=== PATIENT | female | born 1995 | race Caucasian/White ===

== ENCOUNTER 2020-09-30 16:32 | Emergency (ER) | payer OTHER, SELFPAY ==
[2020-09-30 16:43] VITALS: BP 140/59; PULSE 67; RESP 14; TEMP 36.6; O2SAT 99
[2020-09-30] MEDS: KETOROLAC (*BKC) 60 MG/2 ML VIAL IM (16:58)
--- NOTE | 2020-09-30 17:21 | ED.BACK ---
HPI - Back Pain/Injury General Chief Complaint: Back Pain/Injury Stated Complaint: Lower Back Pain Time Seen by Provider: 09/30/20 17:21 Source: patient and RN notes reviewed Mode of arrival: ambulatory Limitations: no limitations History of Present Illness HPI Narrative: 25-year-old female presents concern for right thoracic and lumbar back pain. Reports pain started gradually last night. 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 Reports relieving factors are positions of comfort, not moving. Reports bending, twisting exacerbate the pain. She denies any intervention for her pain other than heating pad which she reports does not improve the pain. She denies any loss of bowel or bladder function, perianal esthesia, dysuria, frequency, urgency, hematuria, abdominal pain, vomiting, weakness in any extremity MD elicited complaint: back pain Related Data Home Medications Medication Instructions Recorded Confirmed mirtazapine 15 mg PO HS 09/30/20 09/30/20 Allergies Allergy/AdvReac Type Severity Reaction Status Date / Time No Known Allergies Allergy Unknown Verified 09/30/20 17:04 Review of Systems Review of Systems: Narrative: CONSTITUTIONAL: Denies malaise, chills, sweats, or fever. CARDIOVASCULAR: Denies chest pain, palpitations, or edema. RESPIRATORY: Denies cough or dyspnea. GASTROINTESTINAL: Denies abdominal pain, vomiting, diarrhea, bloody, or mucous stools. GENITOURINARY: Denies frequency, urgency, dysuria or hematuria. SKIN: Denies bruising, redness MUSCULOSKELETAL: Reports right mid and low back pain. Denies myalgia. NEUROLOGIC: Denies numbness, weakness, or headache. All systems reviewed & are unremarkable except as noted in HPI and below PMFSH Comments At time of signature, agree with nursing past medical, surgical, social and family history. There is no relevant family history pertinent to the presenting complaint Exam Narrative: Exam Narrative: GENERAL: Well-appearing, well-nourished, and in no acute distress. HEAD: Normocephalic, atraumatic. EYES: PERRLA and EOMI. NECK: Supple. No lymphadenopathy. CHEST: Clear to auscultation. No respiratory distress. HEART: Regular rate and rhythm. Distal pulses palpable and equal, cap refill <3 seconds ABDOMEN: Soft, nontender, nondistended, normal active bowel sounds, no palpable or pulsatile masses. No CVA tenderness MUSCULOSKELETAL: Normal range of motion and strength in all extremities; 5/5 strength with hip flexion and extension, dorsiflexion and extension, knee flexion and extension, plantar flexion and extension. Normal sensation in dermatomal distributions with sensitivity to light touch and pain. No midline back tenderness to palpation. No paraspinal tenderness. Transfers from lying to sitting to standing. SKIN: Warm, dry, no rash. No ecchymosis, erythema, open wounds to back. NEURO: No focal deficits. Alert and oriented x3. Reflexes intact. Normal gait. PSYCH: Normal mood and affect Course Course Emergency Course: Patient is aware of diagnosis, understands and agrees to treatment plan. Anticipatory guidance given. Patient agrees to follow-up as directed and is aware of reasons to seek care at the emergency department. Portions of this record may have been created with voice recognition software Vital Signs Vital signs: Vital Signs Temperature 97.8 F 09/30/20 16:43 Pulse Rate 67 09/30/20 16:43 Respiratory Rate 14 09/30/20 16:43 Blood Pressure 140/59 L 09/30/20 16:43 Pulse Oximetry 99 09/30/20 16:43 Temperature 97.8 F 09/30/20 16:43 Pulse Rate 67 09/30/20 16:43 Respiratory Rate 14 09/30/20 16:43 Blood Pressure 140/59 L 09/30/20 16:43 Pulse Oximetry 99 09/30/20 16:43 Reviewed. MDM - Back Pain/Injury MDM Narrative Medical decision making narrative: No risk factors or findings concerning for epidural abscess, diskitis, vertebral osteomyelitis, cord compression, cauda equina, vertebral fracture or bone malignancy, AAA, or pyeloneph
== END 2020-09-30 17:36 | disposition home or self-care (01) ==
PROVIDERS: Emergency Provider Nurse Practitioner; PCP Internal Medicine
DX: M54.6 Pain in thoracic spine (principal)
CPT/HCPCS: 96372; 99213; G0463; J1885

== ENCOUNTER 2020-12-20 08:06 | Emergency (ER) | payer OTHER, SELFPAY ==
--- NOTE | 2020-12-20 08:13 | ED.GENADULT ---
HPI - General Adult General Chief complaint: Upper Respiratory Infection Stated complaint: fever sore throat headache Time Seen by Provider: 12/20/20 08:13 Source: patient Mode of arrival: ambulatory Limitations: no limitations History of Present Illness HPI narrative: 25-year-old female patient presents to the [facility] with complaints of cold symptoms that started yesterday. Patient states that she has had a sore throat and scratchy throat. Patient states she has had some nasal congestion, runny nose and states that she did have a fever of 100 yesterday when she came home from work. Denies any chest pain, shortness of breath. Denies any abdominal pain, nausea, vomiting or diarrhea. Patient states she did try some [id number] TheraFlu last night but denies take anything else for her symptoms. Related Data Home Medications Medication Instructions Recorded Confirmed No Home Medications 12/20/20 12/20/20 Allergies Allergy/AdvReac Type Severity Reaction Status Date / Time No Known Allergies Allergy Unknown Verified 12/20/20 08:30 Review of Systems Review of Systems: Narrative: CONSTITUTIONAL: Positive subjective fever, denies chills, or sweats. EYES: Denies visual changes, redness, or discharge. ENT: Positive rhinorrhea, congestion, sore throat,, denies otalgia. CARDIOVASCULAR: Denies chest pain, palpitations, or edema. RESPIRATORY: Denies cough or dyspnea. GASTROINTESTINAL: Denies abdominal pain, nausea, vomiting, or diarrhea. GENITOURINARY: Denies dysuria or hematuria. SKIN: Denies rash or itching. MUSCULOSKELETAL: Denies back pain, joint pain, or myalgia. NEUROLOGIC: Denies headache, numbness, or weakness. PSYCHIATRIC: Denies anxiety or depression. PMFSH Comments At the time of my signature I agree with nursing past medical history, surgical, social, and family history. There is no relevant family history pertinent to the presenting complaint. Exam Narrative: Exam Narrative: GENERAL: Well-appearing, well-nourished, and in no acute distress. HEAD: Normocephalic, atraumatic. EYES: PERRLA and EOMI. ENT: Nares with erythema and edema noted bilaterally, no rhinorrhea or epistaxis. Mucous membranes moist. Posterior pharynx with slight erythema and some postnasal drip present. No exudates lesions present. Bilateral TMs are clear with no erythema or foreign bodies to the canal. NECK: Supple. No lymphadenopathy CHEST: Clear to auscultation. No respiratory distress. HEART: Regular rate and rhythm. No murmur heard. Normal peripheral pulses. ABDOMEN: Soft, nontender, nondistended, normal active bowel sounds. EXTREMITIES: Normal range of motion. No edema. SKIN: Warm, dry, no rash. NEURO: No focal deficits. Alert and oriented x3. Course Reevaluation(s) Reevaluation #1: Reevaluated patient after x-ray resulted. Discussed with her that her bedside strep test today is negative. We will send this off to the lab for a culture and if the culture comes back positive at that time we will place her on antibiotics at that time. Discussed with her that we will not be giving her antibiotics today. Discussed with patient we have sent a PCR Covid test to the lab that typically takes 24 to 48 hours to return. Discussed with patient she can do [id number] medications and I highly recommend an antihistamine something such as Zyrtec, Claritin or Melly for this does look like possibly sinus drainage. Patient verbalized understanding denies any other questions or concerns at this time. Date: 12/20/20 Time: 08:39 Vital Signs Vital signs: Vital Signs Temperature 36.4 C L 12/20/20 08:16 Pulse Rate 67 12/20/20 08:16 Respiratory Rate 20 12/20/20 08:16 Blood Pressure 110/49 L 12/20/20 08:16 Pulse Oximetry 100 12/20/20 08:16 Temperature 36.4 C L 12/20/20 08:16 Pulse Rate 67 12/20/20 08:16 Respiratory Rate 20 12/20/20 08:16 Blood Pressure 110/49 L 12/20/20 08:16 Pulse Oximetry 100 12/20/20 08:16 V
[2020-12-20 08:16] VITALS: BP 110/49; PULSE 67; RESP 20; TEMP 36.4; O2SAT 100
[2020-12-22 19:28] LABS: SARS-CoV-2 RNA PCR Negative
== END 2020-12-20 08:40 | disposition home or self-care (01) ==
PROVIDERS: Emergency Provider Nurse Practitioner Family; PCP Internal Medicine
DX: J02.9 Acute pharyngitis, unspecified (principal); J30.9 Allergic rhinitis, unspecified; Z20.822 Contact with and (suspected) exposure to COVID-19
CPT/HCPCS: 87081; 87880; 99213; C9803; G0463; U0003; U0005

== ENCOUNTER 2022-07-21 08:32 | Emergency (ER) | payer OTHER, SELFPAY ==
[2022-07-21 08:38] VITALS: BP 93/50; PULSE 66; RESP 16; TEMP 36.9; O2SAT 100
--- NOTE | 2022-07-21 08:51 | ED.FEMALEGU ---
HPI - Female Genitourinary General Chief complaint: Urogenital-Female Stated complaint: Urinary Problem/Low Back Pain Time Seen by Provider: 07/21/22 09:02 Source: patient and RN notes reviewed Mode of arrival: ambulatory Limitations: no limitations History of Present Illness HPI Narrative: 27 y/o female presented for c/o lower abdominal cramping for 3 days. She endorses LMP 14 days ago, stating she had inserted a tampon then forgot and inserted another tampon; both in for about 6 hours. She has since removed both tampons, but endorses lower abdominal pain 8/10 radiating to mid lower back. Endorses decreased urine output, and 'skin peeling' around vaginal area, and clear discharge. Denies pelvic pain, irregular bleeding, dysuria, hematuria, n/v/d/f/c. Denies concern for STD. Tylenol yesterday for pain. Hx tubal ligation early 2021 Related Data Home Medications Medication Instructions Recorded Confirmed No Home Medications 12/20/20 12/20/20 Allergies Allergy/AdvReac Type Severity Reaction Status Date / Time No Known Allergies Allergy Unknown Verified 12/20/20 08:30 Review of Systems Review of Systems: CONSTITUTIONAL: Denies body aches, fever, chills, or sweats. CARDIOVASCULAR: Denies chest pain, palpitations, or edema. RESPIRATORY: Denies cough or dyspnea. GASTROINTESTINAL: Denies abdominal pain, nausea, vomiting, or diarrhea. GENITOURINARY: per HPI SKIN: Denies rash, itching, or wounds. MUSCULOSKELETAL: Denies back pain or myalgia. PMFSH Comments At time of signature, I have reviewed and agree with nursing past medical, surgical, social and family history unless otherwise noted. Please see nursing chart for further information. There is no relevant family history pertinent to the presenting complaint Exam Narrative: GENERAL: Well-appearing and in no acute distress. EYES: EOMI. . ENT: Mucous membranes pink and moist. CHEST: Clear to auscultation. HEART: Regular rate and rhythm. ABDOMEN: Tender LLQ tearful on palpation; Soft, nondistended, normal active bowel sounds. No CVA tenderness SKIN: Warm, dry, no rash. NEURO: Alert and oriented x3. PSYCH: Normal affect. Course Course Emergency Course: Patient is aware of diagnosis, understands and agrees to treatment plan. Anticipatory guidance given. Portions of this record may have been created with voice recognition software Level of Care: Express Care Visit Vital Signs Vital signs: Vital Signs Temperature 98.4 F 07/21/22 08:38 Pulse Rate 66 07/21/22 08:38 Respiratory Rate 16 07/21/22 08:38 Blood Pressure 93/50 L 07/21/22 08:38 Pulse Oximetry 100 07/21/22 08:38 Oxygen Delivery Room Air 07/21/22 08:38 Temperature 98.4 F 07/21/22 08:38 Pulse Rate 66 07/21/22 08:38 Respiratory Rate 16 07/21/22 08:38 Blood Pressure 93/50 L 07/21/22 08:38 Pulse Oximetry 100 07/21/22 08:38 Oxygen Delivery Room Air 07/21/22 08:38 Reviewed Transfer Transfered to: [facility]) Transportation: Other (private vehicle) Transfer rationale: Pt is agreeable to transfer. Requests transfer to [facility] via private vehicle. Risks of transportation reviewed with pt including injury, worsening of condition and . v/u. Report called to hospital, spoke with Dr Farfan, accepting physician. Pt is in stable condition at time of transfer. Advised to remain NPO and go directly to the hospital. MDM - Female Genitourinary MDM Narrative Medical decision making narrative: Due to extreme pain to LLQ on palpation, she is advised transfer to ER. Requests [facility]. Differential Diagnosis Differential diagnosis: Likely bacterial vaginosis, cervicitis, ovarian cyst, ruptured ovarian cyst and cystitis Lab Data Labs: Urine Glucose Negative Reference Range: Negative Urine Bilirubin Negative
== END 2022-07-21 09:23 | disposition short-term general hospital (02) ==
PROVIDERS: Emergency Provider Nurse Practitioner Family
DX: R10.30 Lower abdominal pain, unspecified (principal)
CPT/HCPCS: 81003; 99212; G0463

== ENCOUNTER 2022-11-17 08:02 | Emergency (ER) | payer OTHER, SELFPAY ==
--- NOTE | 2022-11-17 08:04 | ED.URI ---
HPI - URI/Sore Throat General Chief Complaint: Upper Respiratory Infection Stated Complaint: Sore Throat/Cough Time Seen by Provider: 11/17/22 08:04 Source: patient and RN notes reviewed History of Present Illness HPI Narrative: Patient is a 27-year-old female who presents to urgent care with complaints of sore throat, cough, postnasal drainage and headache. Patient states symptoms started on Tuesday. Reports that her daughter was positive for strep last week. Patient has not taken anything [id number] for her symptoms. Reports subjective fever. Denies any nausea or vomiting. No other acute complaints. No acute distress noted. Patient aware of the plan of care. Some parts of this dictation were generated by voice recognition software and may contain typographical and/or grammatical inaccuracies. Related Data Allergies Allergy/AdvReac Type Severity Reaction Status Date / Time No Known Allergies Allergy Unknown Verified 11/17/22 08:37 Review of Systems Review of Systems: CONSTITUTIONAL: Denies fever, chills, or sweats. EYES: Denies visual changes, redness, or discharge. ENT: Denies rhinorrhea, congestion, otalgia. Reports of sore throat postnasal drainage CARDIOVASCULAR: Denies chest pain, palpitations, or edema. RESPIRATORY: Denies cough or dyspnea. GASTROINTESTINAL: Denies abdominal pain, nausea, vomiting, or diarrhea. GENITOURINARY: Denies dysuria or hematuria. SKIN: Denies rash or itching. MUSCULOSKELETAL: Denies back pain, joint pain, or myalgia. NEUROLOGIC: Reports headache All other systems reviewed are negative, except as documented in HPI. PMFSH Comments At the time of my signature, I reviewed and agree with the nursing past medical, surgical, social, and family history. There is no relevant family history pertinent to the patient complaint. Exam Narrative: GENERAL: This is a well-nourished, well-developed patient, in no apparent distress. HEAD: normocephalic, atraumatic. EYES: PERRL. Sclera clear/white. Vision is grossly intact. EARS: External ears normal, auditory canals clear and without drainage, TMs normal without perforation. Hearing grossly intact. NOSE: External nose normal with no obvious nasal discharge, nares without redness, no rhinorrhea. THROAT: Mucous membranes moist, mild erythema posterior oropharynx moderate postnasal drainage. No exudate or ulceration. NECK: Neck supple, non-tender without lymphadenopathy CARDIOVASCULAR: Regular rate and rhythm without murmurs, gallops, or rubs. RESPIRATORY: Clear to auscultation. Breath sounds equal bilaterally. No wheezes, rales, or rhonchi. SKIN: warm, intact with no suspicious lesions or rash, good texture and turgor. NEURO: awake, alert, and oriented to person, place and time. There were no obvious focal neurologic abnormalities. EXTREMITIES: No clubbing, cyanosis, or edema. Course Course Level of Care: Express Care Visit Vital Signs Vital signs: Vital Signs Temperature 97.7 F 11/17/22 08:13 Pulse Rate 82 11/17/22 08:13 Respiratory Rate 16 11/17/22 08:13 Blood Pressure 95/60 L 11/17/22 08:13 Pulse Oximetry 100 11/17/22 08:13 Oxygen Delivery Room Air 11/17/22 08:13 Temperature 97.7 F 11/17/22 08:13 Pulse Rate 82 11/17/22 08:13 Respiratory Rate 16 11/17/22 08:13 Blood Pressure 95/60 L 11/17/22 08:13 Pulse Oximetry 100 11/17/22 08:13 Oxygen Delivery Room Air 11/17/22 08:13 Reviewed MDM - URI/Sore Throat MDM Narrative Medical decision making narrative: Reviewed lab results with the patient. She is aware that she is positive for strep. Advised her to complete the oral antibiotic regimen as prescribed. Be sure to eat and drink with medication. Be aware that you are considered contagious until you have been on the medication for 24 hours and remained fever free, without fever reducers. Change your toothbrush in 2-3 days. Use Tylenol/ibuprofen as needed. Follow-up with your PCP within 2-5 days or for
[2022-11-17 08:13] VITALS: BP 95/60; PULSE 82; RESP 16; TEMP 36.5; O2SAT 100
== END 2022-11-17 08:50 | disposition home or self-care (01) ==
PROVIDERS: Emergency Provider Nurse Practitioner Family; PCP Physician Assistant
DX: J02.0 Streptococcal pharyngitis (principal)
CPT/HCPCS: 87880; 99213; G0463

== ENCOUNTER 2023-04-05 13:47 | Emergency (ER) | payer OTHER, SELFPAY ==
[2023-04-05 13:53] VITALS: BP 112/66; PULSE 88; RESP 16; TEMP 36.7; O2SAT 100
[2023-04-05 13:58] VITALS: BP 112/66; PULSE 88; RESP 16; TEMP 36.7; O2SAT 100
--- NOTE | 2023-04-05 14:26 | ED.FEMALEGU ---
HPI - Female Genitourinary General Chief complaint: Abdominal Pain Stated complaint: Abdominal Pain Time Seen by Provider: 04/05/23 14:22 Source: patient and RN notes reviewed Mode of arrival: ambulatory Limitations: no limitations History of Present Illness HPI Narrative: 28-year-old female presents with concern for low abdominal discomfort, urgency, frequency. She reports she has had urinary tract infections in the past, she also reports however she had unprotected sex about 1 week ago. She denies fever, aches, chills, sweats. She reports slightly strange odor from her genitals. MD elicited complaint: UTI Related Data Allergies Allergy/AdvReac Type Severity Reaction Status Date / Time No Known Allergies Allergy Unknown Verified 11/17/22 08:37 Review of Systems Review of Systems: CONSTITUTIONAL: Denies malaise, chills, sweats, or fever. CARDIOVASCULAR: Denies chest pain, palpitations, or edema. RESPIRATORY: Denies cough or dyspnea. GASTROINTESTINAL: Denies abdominal pain, nausea, vomiting, diarrhea GENITOURINARY: Reports dysuria, frequency, urgency, suprapubic discomfort. Denies flank pain or hematuria. SKIN: Denies rash or itching. MUSCULOSKELETAL: Denies back pain or myalgia. All systems reviewed & are unremarkable except as noted in HPI and below PMFSH Comments At time of signature, agree with nursing past medical, surgical, social and family history. There is no relevant family history pertinent to the presenting complaint Exam Narrative: GENERAL: Well-appearing, well-nourished, and in no acute distress. HEAD: Normocephalic. EYES: PERRLA, conjunctivae clear. NECK: Supple. No lymphadenopathy CHEST: Clear to auscultation. No respiratory distress. HEART: Regular rate and rhythm. ABDOMEN: Soft, mild suprapubic tenderness, nondistended, normal active bowel sounds, no palpable or pulsatile masses, no guarding. No CVA tenderness SKIN: Warm, dry, no rash. NEURO: Alert and oriented x3. PSYCH: Normal mood and affect Course Course Emergency Course: Discussed treatment options with patient for UTI versus STI. Patient does have 1+ leukocytes trace blood in her urinalysis. She would prefer to be treated for urinary tract infection, she understands that if any STI is positive she will receive treatment at that time and needs to avoid unprotected sex. She understands she may have to return for an injection Patient is aware of diagnosis, understands and agrees to treatment plan. Anticipatory guidance given. Patient agrees to follow-up as directed and is aware of reasons to seek care at the emergency department. Portions of this record may have been created with voice recognition software Level of Care: Express Care Visit Vital Signs Vital signs: Vital Signs Temperature 98.0 F 04/05/23 13:53 Pulse Rate 88 04/05/23 13:53 Respiratory Rate 16 04/05/23 13:53 Blood Pressure 112/66 04/05/23 13:53 Pulse Oximetry 100 04/05/23 13:53 Oxygen Delivery Room Air 04/05/23 13:53 Temperature 98.0 F 04/05/23 13:58 Pulse Rate 88 04/05/23 13:58 Respiratory Rate 16 04/05/23 13:58 Blood Pressure 112/66 04/05/23 13:58 Pulse Oximetry 100 04/05/23 13:58 Oxygen Delivery Room Air 04/05/23 13:58 Reviewed. MDM - Female Genitourinary MDM Narrative Medical decision making narrative: Exam findings and UA show no acute concerns or changes; patient is non-toxic appearing and is in no distress. Patient is appropriate for outpatient treatment and follow-up. Differential Diagnosis Differential diagnosis: Likely urinary tract infection and cystitis Lab Data Labs: Urine Glucose Negative Reference Range: Negative Urine Bilirubin Negative Reference Range: Negative Urine Ketone Negative Reference Rang
== END 2023-04-05 14:45 | disposition home or self-care (01) ==
PROVIDERS: Emergency Provider Nurse Practitioner; PCP Internal Medicine
DX: R10.30 Lower abdominal pain, unspecified (principal); R39.15 Urgency of urination; R35.0 Frequency of micturition
CPT/HCPCS: 81003; 87086; 87491; 87591; 87661; 99214; G0463

== ENCOUNTER 2023-05-19 09:08 | Emergency (ER) | payer OTHER, SELFPAY ==
[2023-05-19 09:20] VITALS: BP 102/55; PULSE 72; RESP 20; TEMP 36.8; O2SAT 100
--- NOTE | 2023-05-19 09:48 | ED.URI ---
HPI - URI/Sore Throat General Chief Complaint: Upper Respiratory Infection Stated Complaint: Sore Throat Time Seen by Provider: 05/19/23 09:48 History of Present Illness HPI Narrative: 28-year-old female presented for complaint of postnasal drainage, sinus congestion and cough for about 2 weeks. Endorses sick contacts at home, stating her children have all been sick. She denies shortness of breath, wheezing, nausea vomiting, diarrhea, fevers or chills. She has not taking anything for symptoms. Related Data Home Medications Medication Instructions Recorded Confirmed No Home Medications 05/19/23 05/19/23 Allergies Allergy/AdvReac Type Severity Reaction Status Date / Time No Known Allergies Allergy Unknown Verified 05/19/23 09:30 Review of Systems Review of Systems: CONSTITUTIONAL: Denies body aches, fever, chills, or sweats. EYES: Denies visual changes, redness, or discharge. ENT: Reports rhinorrhea, congestion, sore throat. Denies otalgia. CARDIOVASCULAR: Denies chest pain, palpitations, or edema. RESPIRATORY: Denies dyspnea. GASTROINTESTINAL: Denies abdominal pain, nausea, vomiting, or diarrhea. SKIN: Denies rash, itching, or wounds. MUSCULOSKELETAL: Denies back pain, joint pain, or myalgia. NEUROLOGIC: reports headache PMFSH Past Medical History Medical History (Updated 05/19/23 @ 09:55 by Martha Centeno, [employer]) No pertinent past medical history Exam Narrative: GENERAL: well-appearing, no acute distress. EYES: conjunctivae clear ENT: Mucous membranes moist. TMs pearly mcarthur with normal light reflex bilaterally; no tragal tenderness. Oropharynx without erythema, lesions, Tonsils enlargement or exudate. No drooling, no hoarseness, no trismus, uvula midline. No tripod positioning, hot potato voice, or soft palate swelling. NECK: Supple. No lymphadenopathy CHEST: Clear to auscultation, breath sounds equal. No respiratory distress, speaks in full sentences. HEART: Regular rate and rhythm. No murmur heard. SKIN: Warm, dry, no rash. NEURO: Alert and oriented x3. Course Course Emergency Course: Patient is aware of diagnosis, understands and agrees to treatment plan. Anticipatory guidance given. Patient agrees to follow-up as directed and is aware of reasons to seek care at the emergency department. Portions of this record may have been created with voice recognition software Level of Care: Express Care Visit Vital Signs Vital signs: Vital Signs Temperature 98.3 F 05/19/23 09:20 Pulse Rate 72 05/19/23 09:20 Respiratory Rate 20 05/19/23 09:20 Blood Pressure 102/55 L 05/19/23 09:20 Pulse Oximetry 100 05/19/23 09:20 Oxygen Delivery Room Air 05/19/23 09:20 Temperature 98.3 F 05/19/23 09:20 Pulse Rate 72 05/19/23 09:20 Respiratory Rate 20 05/19/23 09:20 Blood Pressure 102/55 L 05/19/23 09:20 Pulse Oximetry 100 05/19/23 09:20 Oxygen Delivery Room Air 05/19/23 09:20 MDM - URI/Sore Throat MDM Narrative Medical decision making narrative: NEG strep result reviewed with pt. Advise supportive treatments. Patient is appropriate for outpatient treatment and follow-up. Differential Diagnosis Differential diagnosis: Likely upper respiratory infection, viral infection and pharyngitis Lab Data Labs: Strep Screen Presumptive Negative *(Reference Range: Negative)* Discharge Plan Discharge Clinical Impression: Upper respiratory infection Patient Disposition: Home, Self-Care Condition: Stable Instructions: Upper Respiratory Infection (ED) Additional Instructions: Rapid strep swab was negative today You will be notified in a few days if the culture comes back positive for strep, and appropriate antibiotics will be called in at that time. if symptoms are due to a viral illness, it is not treated with antibiotics. Viral symptoms can be present for up to 10-14
== END 2023-05-19 10:03 | disposition home or self-care (01) ==
PROVIDERS: Emergency Provider Nurse Practitioner Family; PCP Internal Medicine
DX: J06.9 Acute upper respiratory infection, unspecified (principal)
CPT/HCPCS: 87081; 87880; 99213; G0463

== ENCOUNTER 2023-10-31 14:22 | Emergency (ER) | payer OTHER, SELFPAY ==
--- NOTE | 2023-10-31 15:26 | ED.URI ---
HPI - URI/Sore Throat General Chief Complaint: Upper Respiratory Infection Stated Complaint: Fever/Chills/Cough/Sore Throat Source: patient, RN notes reviewed and old records reviewed Mode of arrival: ambulatory Limitations: no limitations History of Present Illness HPI Narrative: 28 year old female who presents to [facility] care with complaints of 2 day history of cough,sore throat, chills and fevers up to 102F. Patient reports that she took some DayQuil this morning with no improvement in symptoms and has been taking Tylenol for fevers. Patient admits to some body aches. MD elicited complaint: fever, cough, sore throat and other (chills) Onset (ago): day(s) (2) Pain scale (0-10): 5 Able to tolerate fluids by mouth: Yes Treatments prior to arrival: acetaminophen and other (DayQuil) Related Data Home Medications Medication Instructions Recorded Confirmed No Home Medications 05/19/23 05/19/23 Allergies Allergy/AdvReac Type Severity Reaction Status Date / Time No Known Allergies Allergy Unknown Verified 05/19/23 09:30 Review of Systems Review of Systems: CONSTITUTIONAL:Reports malaise, chills, sweats, or fever. EYES: Denies visual changes, redness, or discharge. ENT: Reports rhinorrhea, congestion, sinus pain, no otalgia and positive for sore throat. CARDIOVASCULAR: Denies chest pain, palpitations, or edema. RESPIRATORY: Reports cough.? Denies dyspnea. GASTROINTESTINAL: Denies abdominal pain, nausea, vomiting, diarrhea SKIN: Denies rash or itching. MUSCULOSKELETAL: Reports myalgia. NEUROLOGIC: Denies headache. All systems reviewed & are unremarkable except as noted in HPI and below PMFSH Past Medical History Medical History (Updated 11/01/23 @ 16:21 by Domi Faust NP) Anxiety No pertinent past medical history UTI (urinary tract infection) Surgical History Surgical History (Updated 11/01/23 @ 16:21 by Domi Faust NP) History of tubal ligation Social History Social History (Updated 11/01/23 @ 16:23 by Domi Faust NP) Smoking status: Never smoker Alcohol intake: current Alcohol use details: social Substance use type: does not use Living arrangements: with family Gender identity (if verbalized by the patient): Female Comments At time of signature, agree with nursing past medical, surgical, social and family history. There is no relevant family history pertinent to the presenting complaint Exam Narrative: GENERAL: Well-appearing, well-nourished, and in no acute distress. HEAD: Normocephalic EYES: PERRLA, conjunctivae clear ENT: Nares clear, turbinates edematous and erythematous, clear discharge. Mucous membranes moist. TM pearly mcarthur with dull light reflex bilaterally; no tragal tenderness. Oropharynx erythematous without lesions. Tonsils not enlarged and without exudate, no drooling, no hoarseness, no trismus, uvula midline.post nasal drainage noted. NECK: Supple. No lymphadenopathy CHEST: Clear to auscultation, breath sounds equal. No wheezing, rhonchi, rales, or stridor. No respiratory distress, speaks in full sentences.cough notedSAO2 100% on room air HEART: Regular rate and rhythm. No murmur heard. SKIN: Warm, dry, no rash. NEURO: Alert and oriented x3. PSYCH: Normal mood and affect Course Course Emergency Course: Patient is aware of diagnosis, understands and agrees to treatment plan.? Anticipatory guidance given.? Patient agrees to follow-up as directed and is aware of reasons to seek care at the emergency department. Portions of this record may have been created with voice recognition software Level of Care: Express Care Visit Vital Signs Vital signs: Vital Signs Temperature 37.9 C H 10/31/23 15:41 Pulse Rate 91 10/31/23 15:41 Respiratory Rate 20 10/31/23 15:41 Blood Pressure 115/76 10/31/23 15:41 Pulse Oximetry 100 10/31/23 15:41 Oxygen Delivery Room Air 10/31/23 15:41 Temperature 37
[2023-10-31 15:41] VITALS: BP 115/76; PULSE 91; RESP 20; TEMP 37.9; O2SAT 100
== END 2023-10-31 15:54 | disposition home or self-care (01) ==
PROVIDERS: Emergency Provider Registered Nurse; PCP Internal Medicine
DX: J10.1 Influenza due to other identified influenza virus with other respiratory manifestations (principal); J02.0 Streptococcal pharyngitis; Z20.822 Contact with and (suspected) exposure to COVID-19
CPT/HCPCS: 87081; 87426; 87804; 87880; 99213; G0463

== ENCOUNTER 2024-06-14 16:41 | Emergency (ER) | payer OTHER, SELFPAY ==
[2024-06-14 16:57] VITALS: BP 115/63; PULSE 60; RESP 16; TEMP 37.1; O2SAT 100
[2024-06-14 17:21] LABS: EDINFLUASCREEN Negative (Negative); EDINFLUBSCREEN Negative (Negative)
[2024-06-14 17:24] LABS: EDCOVIDSCREEN Negative (Negative)
--- NOTE | 2024-06-14 17:24 | ED.URI ---
HPI - URI/Sore Throat General Chief Complaint: Upper Respiratory Infection Stated Complaint: aches/throat/cough/sinus Time Seen by Provider: 06/14/24 17:24 Source: patient Mode of arrival: ambulatory Limitations: no limitations History of Present Illness HPI Narrative: 29-year-old female presents with complaint of headache, body aches, fatigue, chills, sore throat and congestion for 1 day. Patient reports recently exposed to influenza a from her daughter. Patient denies nausea vomiting diarrhea. Not taking any [id number] medications to treat her symptoms. All systems reviewed and negative except as noted above. Related Data Allergies Allergy/AdvReac Type Severity Reaction Status Date / Time No Known Allergies Allergy Unknown Verified 11/21/23 11:04 Review of Systems Review of Systems: CONSTITUTIONAL: Denies fever, chills, or sweats. Reports fatigue. EYES: Denies visual changes, redness, or discharge. ENT: reports rhinorrhea, congestion, sore throat. Denies otalgia. CARDIOVASCULAR: Denies chest pain, palpitations, or edema. RESPIRATORY: Denies cough or dyspnea. GASTROINTESTINAL: Denies abdominal pain, nausea, vomiting, or diarrhea. GENITOURINARY: Denies dysuria or hematuria. SKIN: Denies rash or itching. MUSCULOSKELETAL: Denies back pain, joint pain . Reports myalgia. NEUROLOGIC: Denies headache, numbness, or weakness. PSYCHIATRIC: Denies anxiety or depression. All other systems reviewed are negative, except as documented in HPI. [facility] Past Medical History Medical History (Updated 06/14/24 @ 17:30 by Jennifer Odonnell NP) Anxiety No pertinent past medical history UTI (urinary tract infection) Surgical History Surgical History (System 11/21/23 @ 11:04 by Anival Jackson) History of tubal ligation Social History Social History (System 11/21/23 @ 11:04 by Anival Jackson) Smoking status: Never smoker Alcohol intake: current Alcohol use details: social Substance use type: does not use Living arrangements: with family Gender identity (if verbalized by the patient): Female Comments At time of signature, agree with nursing past medical, surgical, social and family history. There is no relevant family history pertinent to the presenting complaint. Exam Narrative: GENERAL: This is a well-nourished, well-developed patient, in no apparent distress. HEAD: normocephalic, atraumatic. EYES: PERRL. Sclera clear/white. Vision is grossly intact. EARS: External ears normal, auditory canals clear and without drainage, TMs normal without perforation. Hearing grossly intact. NOSE: External nose normal with clear nasal drainage without erythema or swelling to nares THROAT: Mucous membranes moist, posterior pharynx clear. NECK: Neck supple, non-tender without lymphadenopathy, masses or thyromegaly. CARDIOVASCULAR: Regular rate and rhythm without murmurs, gallops, or rubs. RESPIRATORY: Clear to auscultation. Breath sounds equal bilaterally. No wheezes, rales, or rhonchi. SKIN: warm, Dry, intact with no suspicious lesions or rash, good texture and turgor. NEURO: awake, alert, and oriented to person, place and time. There were no obvious focal neurologic abnormalities. EXTREMITIES: No joint tenderness, effusion, or edema noted. Course Course Level of Care: Express Care Visit Vital Signs Vital signs: Vital Signs Temperature 37.1 C 06/14/24 16:57 Pulse Rate 60 06/14/24 16:57 Respiratory Rate 16 06/14/24 16:57 Blood Pressure 115/63 06/14/24 16:57 Pulse Oximetry 100 06/14/24 16:57 Oxygen Delivery Room Air 06/14/24 16:57 Temperature 37.1 C 06/14/24 16:57 Pulse Rate 60 06/14/24 16:57 Respiratory Rate 16 06/14/24 16:57 Blood Pressure 115/63 06/14/24 16:57 Pulse Oximetry 100 06/14/24 16:57 Oxygen Delivery Room Air 06/14/24 16:57 reviewed MDM - URI/Sore Throat MDM Narrative Medical decision making narrative: negative COVID and influenza t
== END 2024-06-14 17:37 | disposition home or self-care (01) ==
PROVIDERS: Emergency Provider Nurse Practitioner Family; PCP Internal Medicine
DX: J06.9 Acute upper respiratory infection, unspecified (principal); Z20.822 Contact with and (suspected) exposure to COVID-19
CPT/HCPCS: 87426; 87804; 99213; G0463

== ENCOUNTER 2024-08-15 08:21 | Emergency (ER) | payer OTHER, SELFPAY ==
[2024-08-15 08:34] VITALS: BP 98/57; PULSE 87; RESP 16; TEMP 36.8; O2SAT 100
--- NOTE | 2024-08-15 08:44 | ED_ITS ---
HPI - URI/Sore Throat General Chief Complaint: Upper Respiratory Infection Stated Complaint: Sore Throat Time Seen by Provider: 08/15/24 08:44 Source: patient, RN notes reviewed and old records reviewed Mode of arrival: ambulatory Limitations: no limitations History of Present Illness HPI Narrative: 29 year old female who presents to [facility] care with complaints of sore throat and right ear pain which started last night and has had diarrhea for the past 3 days. Patient reports that her throat hurts so bad she can barely swallow her own spit and she noticed a white spot on her right tonsil. Patient reports that every time she tries to eat she has diarrhea which is watery Patient reports no abdominal pain or any nausea or vomiting states that she feels hungry denies any fevers. chills or body aches. Patient reports that she has been taking Theraflu for her symptoms., elicited complaint: sore throat and other (right ear pain and diarrhea) Onset (ago): day(s) (3) Pain scale (0-10): 8 Description of mucous: clear Able to tolerate fluids by mouth: Yes Exacerbating factors: swallowing Treatments prior to arrival: other (Theraflu) Related Data Allergies Allergy/AdvReac Type Severity Reaction Status Date / Time No Known Allergies Allergy Unknown Verified 08/15/24 08:52 Review of Systems Review of Systems: CONSTITUTIONAL: Reports malaise,no chills, sweats, or fever. EYES: Denies visual changes, redness, or discharge. ENT: Reports no rhinorrhea, congestion, sinus pain,positive for right otalgia and positive sore throat. CARDIOVASCULAR: Denies chest pain, palpitations, or edema. RESPIRATORY: Reports no cough.? Denies dyspnea. GASTROINTESTINAL: Denies abdominal pain, nausea, vomiting, positive for diarrhea SKIN: Denies rash or itching. MUSCULOSKELETAL: Denies myalgia. NEUROLOGIC: Denies headache. All systems reviewed & are unremarkable except as noted in HPI and below PMFSH Past Medical History Medical History Anxiety No pertinent past medical history UTI (urinary tract infection) Surgical History Surgical History History of tubal ligation Social History Social History Smoking status: Never smoker Alcohol intake: current Alcohol use details: social Substance use type: does not use Living arrangements: with family Gender identity (if verbalized by the patient): Female Comments At time of signature, agree with nursing past medical, surgical, social and family history. There is no relevant family history pertinent to the presenting complaint Exam Narrative: GENERAL: Well-appearing, well-nourished, and in no acute distress. HEAD: Normocephalic EYES: PERRLA, conjunctivae clear ENT: Nares clear, turbinates edematous and erythematous, clear discharge. Mucous membranes moist. TM pearly mcarthur with dull light reflex bilaterally; no tragal tenderness. Oropharynx erythematous without white lesion on right tonsil. Tonsils not enlarged, no drooling, no hoarseness, no trismus, uvula midline. NECK: Supple.Positive for lymphadenopathy CHEST: Clear to auscultation, breath sounds equal. No wheezing, rhonchi, rales, or stridor. No respiratory distress, speaks in full sentences.SAO2 100% on room air HEART: Regular rate and rhythm. No murmur heard. SKIN: Warm, dry, no rash. NEURO: Alert and oriented x3. PSYCH: Normal mood and affect Course Course Emergency Course: Patient is aware of diagnosis, understands and agrees to treatment plan.? Anticipatory guidance given.? Patient agrees to follow-up as directed and is aware of reasons to seek care at the emergency department. Portions of this record may have been created with voice recognition software Level of Care: Express Care Visit Vital Signs Vital signs: Vital Signs Temperature 36.8 C 08/15/24 08:34 Pulse Rate 87 08/15/24 08:34 Respiratory Rate 16 08/15/24 08:34 Blood Pressure 98/57 L 08/15/24 08:34 Pulse Oximetry 100 08/15/24 08:34 Oxygen Delivery Room Air 08/15/24 08:34 Temperature 36.8 C 08/15/24 08:34 Pulse Rate 87 08/15/24 08:34 Respiratory Rate 16 08/15/24 08:34 Blood Pressure 98/57 L 08/15/24 08:34 Pulse Oximetry 100 08/15/24 08:34 Oxygen Delivery Room Air 08/15/24 08:34 Reviewed MDM - URI/Sore Throat MDM Narrative Medical decision making narrative: Differential diagnosis considered: Echeverria virus, strep pharyngitis, allergic rhinitis, upper respiratory tract infection, sinusitis, rhinosinusitis, n asopharyngitis. viral pharyngitis, otitis media, otitis externa, pneumonia, bronchitis, viral cough syndrome, viral syndrome, and influenza.? Exam findings show no acute concerns or changes; patient is non-toxic appearing and is in no distress.? Patient is appropriate for outpatient treatment and follow-up. Differential Diagnosis Differential diagnosis: Likely upper respiratory infection, otitis media, viral infection, influenza, pharyngitis and other (tonsillitis, mono, COVID, diarrhea) Medical Records Attestation: I reviewed the patient's medical records. Lab Data Attestation: I reviewed the patient's lab results. Lab results narrative: strep screen negative, culture sent, Influenza A negative, Influenza B negative, Covid negative, [place] screen negative Critical Care Time Critical Care Time Critical Care Time: No Discharge Plan Discharge Clinical Impression: Exudative tonsillitis Diarrhea Qualifiers: Diarrhea type: unspecified type Qualified Code(s): R19.7 - Diarrhea, unspecified Patient Disposition: Home, Self-Care Condition: Stable Instructions: Antibiotic Form, Clear Liquid Diet (ED), Tonsillitis (ED) Additional Instructions: . Take the entire course of antibiotics. Throw away your current toothbrush and begin using a new toothbrush in 48 hours in order to prevent re-infection. Sanitize all reusable water bottles . Do not share items with others. Salt water gargles may alleviate some of the throat discomfort. You can take Tylenol or ibuprofen per the package instructions for pain/fever. Clear liquids for the next 8-10 hours, then advance to a bland diet as tolerated A bland diet can consist of--BRAT diet which is bananas, rice, applesauce, and toast Avoid fried, greasy, fatty, fried foods Avoid caffeine, nicotine, and alcohol Return to your regular diet in the next 3-4 days. Sometimes ibuprofen/Aleve can cause increased stomach upset [id number] Imodium if develop diarrhea Follow-up with her PCP if continued problems or uncontrolled pain If your symptoms persist, change or worsen significantly before you can contact your personal physician then please, without delay, go to the emergency de partment for further evaluation. Follow-up with PCP in 7-10 days or sooner if needed Prescriptions: New azithromycin 250 mg tablet See Rx Instructions .ROUTE .COMPLEX Qty: 6 0RF Rx Instructions: For 250 mg dose pack: take 500 mg today (day 1), then 250 mg for 4 days (days 2-5) Follow-up/Referrals: Nallely,MD Maximiliano [Primary Care Provider] - Time of Disposition: 09:12 Quality [place] Coma Scale Eyes: Open Verbal: Oriented and Alert Motor: Follows Commands Juan Coma Total Score: 15
[2024-08-15 09:01] LABS: EDSTREPNEGPOS1 Negative (Negative)
[2024-08-15 09:01] LABS: EDMONONEGPOS Negative (Negative)
[2024-08-15 09:07] LABS: EDCOVIDSCREEN Negative (Negative); EDINFLUASCREEN Negative (Negative); EDINFLUBSCREEN Negative (Negative)
== END 2024-08-15 09:15 | disposition home or self-care (01) ==
PROVIDERS: Emergency Provider Registered Nurse; PCP Internal Medicine
DX: J03.90 Acute tonsillitis, unspecified (principal); R19.7 Diarrhea, unspecified; Z20.822 Contact with and (suspected) exposure to COVID-19
CPT/HCPCS: 36416; 86308; 87081; 87426; 87804; 87880; 99213; G0463

== ENCOUNTER 2024-10-31 13:39 | Emergency (ER) | payer OTHER, SELFPAY ==
--- OUTSIDE RECORDS SUMMARY | 2024-10-31 13:41 | XMS_ITS ---
Author Organization [facility] Address [address] [place] [address] Phone Care Team Providers Care Supervisor Agricultural Education Name Role Phone Maximiliano Browning MD Primary Care Provider [phone] [facility] Status:Enrolled (Active) Start date:10/17/2024 Enrollment date:10/17/2024 Related social drivers of health:Intimate Partner Violence, Social Connections, Alcohol Use, Financial Resource Strain, Depression, Stress, Physical Activity, Food Insecurity, Transportation Needs, Housing Stability, Utilities Continued Care and Services Coordination
--- OUTSIDE RECORDS SUMMARY | 2024-10-31 13:41 | XMS_ITS | Referral Summary ---
Author Organization [facility] Address [address] [place] [address] Care Team Providers Care Account Maintenance Representative Name Role Phone No, Physician Primary Care Provider [phone] Allergies No known active allergies Medications venlafaxine (EFFEXOR) 25 mg tablet Take 25 mg by mouth 2 (two) times a day Not taking Active ibuprofen (ADVIL,MOTRIN) 600 mg tablet Take 1 tablet (600 mg total) by mouth every 6 (six) hours as needed for pain 30 tablet 12/15/2021 Active polyethylene glycol (MIRALAX) 17 gram packetIndication s:constipation Take 1 packet (17 g total) by mouth daily for 10 doses 10 packet 12/15/2021 Active oxyCODONE (ROXICODONE) 5 mg immediate release tabletIndication s:Pain Take 1 tablet (5 mg total) by mouth every 4 (four) hours as needed for pain 10 tablet 12/15/2021 Active Active Problems Problem Noted Date Diagnosed Date exam 12/01/2021 Overview (12/01/2021): -May return to normal activity. -Aware of date for interval tubal ligation. -Follow up in 1 year for WWE. Unwanted fertility 09/29/2021 Overview (12/01/2021): -Desires tubal ligation. -MO sterilization consents signed 09/29/21. -12/01/21-Reports Interval tubal/salpingectomy scheduled for 12/15/21. Encouraged condoms until post op salpingectomy. We discussed options for sterilization. Offered to move IOL to when the consents are valid, but patient declined. We discussed alternative being an interval laparoscopic bilateral salpingectomy or LARC placement . She desires to proceed with bilateral salpingectomy. We reviewed risk of bleeding, infection, damage to surrounding structures and risk of regret. Reviewed lifting precautions post- op. Will place prep for case and plan for procedure 6 weeks after delivery. Anemia 09/29/2021 Overview (12/01/2021): -07/06/21: Hgb/Hct 10.7/33.7 -Continue PO iron twice daily. -09/29/21: Hgb/Hct 8.9/29.0 -S/P iron infusion on 10/01/21. -10/20/21 Hgb 10.3 -12/01/21 -Encouraged to continue iron supplement. Eating disorder affecting , antepartum 07/23/2021 Overview (10/12/2021): - Patient w/ longstanding hx of binge eating/purging, does not specify how often - Weight gain in appropriate - Declines other mental health resources however motivated to improve and working on strategies to do so at home - Discussed triggers such as avoiding looking at scale at OB visits as trigger for ED; this was d/w patient today Anxiety 07/06/2021 Overview (12/01/2021): -Denies SI/HI. -12/01/21 EPDS=18 ( Never ) Question 10. Encouraged to keep appt with psychiatry. Continue taking venlafaxine as prescribed by PCP. Rubella non-immune status, antepartum 04/22/2021 Overview (12/01/2021): -12/01/21-Declines MMR at visit. Elevated blood pressure reading 04/21/2021 Overview (12/01/2021): -Prior to : 03/02/19 163/69 ER - per care everywhere Hemorrhoids 04/21/2021 Overview (09/29/2021): -06/10/21: Improving -09/29/21: Encouraged continue stool softeners, unosol cream. May take miralax daily as needed. Colitis 12/29/2017 Overview (12/15/2021): Year of diagnosis: 2012. Year symptoms began: ~2011. Distribution: Extensive (E3). Extraintestinal manifestations: None. Complications: None. Prior treatments: Intermittent courses of Prednisone and Pentasa, last in 2018. Current treatment: None. Prior surgeries: None. Endoscopies: C-scope 12/30/2017: showed colitis from rectum to hepatic flexure. Path from rectum/R/L colon showed chronic active colitis with cryptitis, crypt abscess formation, and crypt architectural distortion. Imaging: CT A/P 12/28/2017 showed colitis in descending/sigmoid/transverse colon. Overview 12/15/2021: Ulcerative rasheed-colitis, asymptomatic at baseline with intermittent flares of bloody diarrhea/lower abd pain/weight loss, last flare over 1 year ago. Assessment & Plan (12/15/2021 9:58 AM CDT): - New patient labs today including CBC, CMP, CRP, Fecal calprotectin, iron/Vitamin studies and pre-biologic labs - Schedule colonoscopy for disease evaluation in the upcoming weeks - Treatment depending on disease acitivity Assessment & Plan (12/29/2017 1:58 AM CDT): CT of the abdomen and pelvis was consistent with left-sided colitis of unclear source. Patient was started empirically on Cipro and Flagyl Will get stool studies Trend CBC GI consult Keep patient on clear liquid diet IV fluids Will follow up with GI recommendations Hematochezia 12/29/2017 Overview (12/01/2021): -06/10/21: Reports resolution. No reported problems in past two weeks with change in stools. -07/06/21: Reports recent blood in stools thought to be r/t hemorrhoids Assessment & Plan (12/29/2017 1:57 AM CDT): Patient reports loose bloody stools, denies any mucus in the stools. Unclear the previous diagnosis for I PT Will trend CBC Patient was empirically started on Cipro and Flagyl Will get stool cultures and stool white blood cells as well as calprotectin and CT of status Will check for CRP GI was consulted, Dr. Soares to see the patient in a.m. Will keep the patient on clear liquid diet for now Will hold off starting on any systemic steroids until other secondary causes are ruled out Resolved Problems Problem Noted Date Diagnosed Date Resolved Date care following vaginal delivery 10/21/2021 12/01/2021 Overview (10/23/2021): # ID: Afebrile. No signs/symptoms of infection. #COVID-19: Negative #Rub NI: declines MMR # Heme: EBL 250 mL. No symptoms acute blood loss anemia. # CV/Pulm: Vital signs stable, within normal limits. # GI/: Tolerating PO. Voiding spontaneously. # Anxiety: Continue citalopram 20mg. SW complete. # Pain: Controlled with above regimen. # Post DVT prophylaxis: The patient has the following MAJOR risk factors none and the following MINOR risk factors BMI 30-39. SCDs ordered for VTE prophylaxis. # MOC: Desires interval BTL, declines bridge. # MOF: Formula feeding # COVID Vaccination Status: Not previously received: I decline to share my reason for not getting the vaccine # Disposition: Follow up task sent to [facility] scheduling pool. Desires discharge home today. Encounter for induction of labor 10/20/2021 12/01/2021 Overview (10/20/2021): 1. rrIOL: Admit to L&D. Consents signed and placed in chart. Send CBC/T&S. Induction of labor with M. 2. FWB: Continuous monitoring. tracing category I 3. ID: HIV negative. GBS negative. Membrane Status: intact. #Rubella nonimmune: For MMR. 4. Heme: #Hx/o hemorrhage: Previously required transfusion after delivery. #Anemia: S/p iron infusion 10/01/21. CBC on admission pending. 5. #GERD: Continued on daily PPI throughout . 6. #Hx/o binge eating disorder: Weight gain in appropriate. For continued follow up . 7. #Anxiety: Previously declined PNBNS. Mood controlled with citalopram 20 mg daily. 8. Indications for UDS: none. Verbal consent obtained for UDS: Not indicated 9. MOF: Plans to formula feed. 10. MOC: Desires permanent sterilization, consents signed on 09/29/21. Pt declined bridge 11. Pain management: Desires epidural PRN. 12. Post DVT prophylaxis: The patient has the following MAJOR risk factors none and the following MINOR risk factors BMI 30-39. SCDs will be ordered for VTE prophylaxis . 13. COVID Vaccine Status: Not previously received: I decline to share my reason for not getting the vaccine 14. COVID Test Status: Preadmission testing negative History of hemorrhage 10/07/2021 12/01/2021 Overview (10/07/2021): -Reported by patient, requiring transfusion at delivery. Heartburn during in third trimester 08/18/2012/01/2021 Overview (09/01/2021): -May take OTC omeprazole 20mg tablets once daily. Take on an empty stomach 30 minutes prior to eating or drinking. -Discussed dietary and lifestyle modifications. -May take tums OTC as needed. -09/01/21 - symptoms improving. Encounter for supervision of normal in second trimester 04/21/2021 12/01/2021 Overview (10/19/2021): Plan: -Continue PNV 1 tablet daily. -L&D/preeclampsia precautions. -Encouraged FKCs. -Scheduled IOL 10/20/21 @ 8:30AM. -Pre-procedure COVID testing today - 10/19/21. OB Labs: EDC: 10/25/21 by T US [x] Dating ultrasound: 05/13/21 @ 16w3d +FHM O+ (Neg) H/H: 12.2/36.1 Rubella: Non-Imm HepB/C: Neg/Neg RPR: NR HIV: NR VZ: Imm Hgb electrophoresis (if indicated): N/A Urine Cx: Neg UDS: Neg NG/CT: Neg Trich: Neg Pap: 04/22/21 Negative HgbA1C: 4.7 (88) [x] Genetic Screenin05/13/21 Low probability, Male [x] PNBHS referral (if indicated): EPDS= 16 08/04/21 EPDS = 10 2nd Tri Labs: [x] Anatomy Ultrasound: 06/10/21 @ 20w3d +FHM EFW: 357g (47th%) Placenta: Posterior JOHANA: normal Cervical length: normal, 50.5mm Incomplete d/t suboptimal views - return in 2 weeks for completion. 07/02/21: Anatomy complete - no malformations. [x] H/H: 10.7/33.7 Plt: 383 GTT: 75 [] Flu Shot (May-Aug): declined [] Tdap (27-36wks): Declined [] Rhogam (if Rh neg): N/A O+ [x] COVID Vaccine: declines [x] Childbirth Classes discussed 3rd Tri Labs: [x] H/H: 8.9/29.0 Plt: 350 HIV: Neg RPR: [x] GBS: Negative [x] NG/CT: Neg/Neg Trich: Neg Counseling: [x] Discussed recommended weight gain in . [x] MOD: Anticipate vaginal [x] MOF: Formula. discussed baby friendly, skin to skin/rooming in Formula safety. breast care discussed. 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 [x] Car seat Discussed [x] PP Depression Signs and Symptoms Discussed Blood loss anemia 12/29/2017 04/21/2021 Assessment & Plan (12/29/2017 1:59 AM CDT): Noted to be slightly anemic likely due to chronic blood loss in stools Will get iron studies Supplement as needed Immunizations Name Administration Dates Next Due DTP / HiB 03/07/1996,1995 DTaP 06/13/2003,07/11/1998,12/25/1997 Hep B, Adolescent or Pediatric 12/25/1997,1995,1995 HiB 07/11/1998,12/25/1997 IPV 06/13/2003 MMR 10/23/2021(Deferred: Patient Refused),06/13/2003,01/13/1998 OPV 12/25/1997,03/07/1996,1995 Tdap 02/23/2020 Social History Tobacco Use Types Packs/Day Years Used Date Smoking Tobacco: Never Smokeless Tobacco: Never Tobacco Cessation:Counseling Given: Not Answered Alcohol Use Standard Drinks/Week Comments No 0 (1 standard drink = 0.6 oz pur e alcohol) Humiliation, Afraid, Rape, and Kick questionnair e Answer Date Recorded Within the last year, have y ou been afraid of your partner or ex-partner? No 04/21/2021 Within the last year, have y ou been humiliated or emotionally abused in other ways by your partner or ex-partner? No Within the last year, have y ou been kicked, hit, slapped, or otherwise physically hurt by your partner or ex-partner? No 04/21/2021 Within the last year, have y ou been raped or forced to have any kind of sexual activity by your partner or ex-partner? No 04/21/2021 Social Connection and Isolat ion Panel [NHANES] Answer Date Recorded In a typical week, how many times do you talk on the phone with family, friends, or neighbors? More than three times a week 10/22/2021 How often do you get togethe r with friends or relatives? More than three times a week 10/22/2021 How often do you attend chur ch or congregational services? Never 10/22/2021 Do you belong to any clubs o r organizations such as muslim groups, unions, fraternal or athletic groups, or school groups? No 10/22/2021 How often do you attend meet ings of the clubs or organizations you belong to? Never 10/22/2021 Are you , , di vorced, , never , or living with a partner? Living with partner 10/22/2021 AUDIT-C Answer Date Recorded Q1: How often do you have a drink containing alc ohol? Never 01/28/2022 Average Number of Drinks Not on file 022 Q3: How often do you have si x or more drinks on one occasion? Never 01/28/2022 Overall Financial Resource Strain (CARDIA) Answe r Date Recorded How hard is it for you to pa y for the very basics like food, housing, medical care, and heating? Not hard at all 10/22/2021 [facility] Occupat ional [facility] - Occupational Stress Questionnaire Answer Date Recorded Do you feel stress - tense, restless, nervous, or anxious, or unable to sleep at night because your mind is troubled all the time - these days? To some extent 04/21/2021 Exercise Vital Sign Answer Date Recorde d On average, how many days pe r week do you engage in moderate to strenuous exercise (like a brisk walk)? 5 days 04/21/2021 On average, how many minutes do you engage in exercise at this level? 60 min 04/21/2021 Hunger Vital Sign Answer Date Recorded Within the past 12 months, y ou worried that your food would run out before you got the money to buy more. Never true 04/26/20 23 Within the past 12 months, t he food you bought just didn't last and you didn't have money to get more. Never true 04/26/2023 PRAPARE - Transportation Answer Date Re corded In the past 12 months, has l ack of transportation kept you from medical appointments or from getting medications? No 11/2021 In the past 12 months, has l ack of transportation kept you from meetings, work, or from getting things needed for daily living? No 10/22/2021 Housing Stability Vital Sign Answer Marcial e Recorded In the last 12 months, was t here a time when you were not able to pay the mortgage or rent on time? No 10/22/2021 In the last 12 months, how many places have you lived? 1 10/22/2021 In the last 12 months, was t here a time when you did not have a steady place to sleep or slept in a senior care (including now)? No 10/22/2021 Austin Depression Scale Answer Date Recorded Austin Depression Scale Total 18 12/01/2021 The thought of harming myself has occurred to me . 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 Gender Identity Not on file Sexual Orientation Not on file Last Filed Vital Signs Vital Sign Reading Time Taken Comments Blood Pressure 100/64 04/26/2023 3:42 PM CDT Pulse 64 04/26/2023 3:42 PM CDT Temperature 36.5 C (97.7 F) 04/26/2023 3:42 PM CDT Respiratory Rate 16 04/26/2023 3:42 PM CDT Oxygen Saturation 100% 04/26/2023 3:42 PM CDT Inhaled Oxygen Concentration - - Weight 60.8 kg (134 lb) 04/26/2023 3:42 PM CDT Height 162.6 cm (5' 4 ) 01/28/2022 8:20 AM CDT Body Mass Index 23 01/28/2022 8:20 AM CDT Plan of Treatment Not on file Procedures Procedure Name Priority Date/Time Associated Diagnosis Comments HEPATITIS C ANTIBODY Routine 04/21/2021 2:10 PM CDT Encounter for supervision of normal first in first trimester PAP WITH REFLEX TO HIGH RISK HPV Routine 04/21/2021 1:55 PM CDT from Last 3 Months or Most Recently Relevant to Health Maintenance Results * Hepatitis C antibody (04/21/2021 2:10 PM CDT) Hep C Ab Nonreactive Nonreactive GRACIELA CABRALES Comment:Antibodies to HCV no t detected. Does NOT exclude the possibility of recent exposure to HCV. Blood specimen (specimen) 04/21/2021 2:10 PM CDT 04/21/2021 2:53 PM CDT us Charlotte Fernandez NP LAB MICROBIOLOGY - GEN ERAL ORDERABLES Edited Result - Final GRACIELA RAMIRES [facility] [place] [address] * Pap with reflex to High Risk HPV (04/21/2021 1:55 PM CDT) Pap test 04/21/2021 1:55 PM CDT 04/21/2021 3:17 PM CDT Narrative 04/30/2021 8:39 AM CDT EPIC results best viewed via link to PDF [facility] [place] [address] [place] [address] Note to Patients: This report may contain a detailed description of human tissue sent by a health care provider to the laboratory for pathologic evaluation. The content of this report is essential for diagnosis and may provide important critical findings. This information may be unfamiliar to patients to review without a medical professional present. It is advised that the patient review this report in the presence of a health care provider who can answer questions and explain the details. CYTOPATHOLOGY REPORT FINAL Patient Name: ZOË LACY Gender: F : 1995 (Age: 26) Address: [address] [place] [address] Hospital #: [id number] Service: Gynecology Location: [facility] Patient Type: [facility] Ancillary Taken: 04/21/2021 Received: 04/21/2021 Accessioned: 04/22/2021 Reported: 04/30/2021 Physician(s): KYARA Judd FINAL INTERPRETATION SOURCE OF SPECIMEN: Liquid based Thin Prep pap with Reflex HPV STATEMENT OF ADEQUACY: - Satisfactory for evaluation - Endocervical cells/transformation zone sample present GENERAL CATEGORY: - Negative for squamous intraepithelial lesion or malignancy /04/30/2021 08:39 LAY Castellon(ASCP) Report Electronically Reviewed and Signed Out By LAY Castellon(ASCP) 04/30/2021 08:39:48 Cervicovaginal Cytology (Pap Test) Disclaimer: The Pap test is a screening test used to detect cervical cancer and its precursors; it is not a diagnostic procedure. False negative and false positive results do occur. Pap test results should be interpreted in the context of pertinent clinical information and biopsy results as indicated. Gross Description A. Liquid based Thin Prep pap with Reflex HPV: Cervical/vaginal - Screening ThinPrep Clinical Diagnosis and History Last Menstrual Period: 01/11/21 Menstrual History: The patient is a 26 year old woman with WWE and IOB. Report Images and scanned documents, if included only viewable in PDF version The performance characteristics of some immunohistochemical stains, in-situ hybridization and fluorescence in-situ hybridization tests and immunophenotyping by flow cytometry cited in this report (if any) were determined by the Surgical Pathology Department at [facility] as part of an ongoing quality controller program and in compliance with federally mandated regulations drawn from the Clinical Laboratory Improvement Act of 1988 (CLIA '88). Some of these tests rely on the use of analyte specific reagents and are subject to specific labeling requirements by the US Food and Drug Administration. Such diagnostic tests may only be performed in a facility that is certified by the Department of Health and Human Services as a high complexity laboratory under CLIA '88. The FDA has determined that such clearance or approval is not necessary. This test is used for clinical purposes. It should not be regarded as investigational or for research. Nevertheless, federal rules concerning the medical use of analyte specific reagents require that the following disclaimer be attached to the report: This test was developed and its performance characteristics determined by the Surgical Pathology Department of [facility]. It has not been cleared or approved by the U. S. Food and Drug Administration. Charlotte Fernandez NP LAB CYTOLOGY ORDERABLE S Final Result from Last 3 Months or Most Recently Relevant to Health Maintenance Insurance [place] [id number] [place] [address] MEDICAID [facility] [place] [address] [address] IDPA [facility] Advance Directives For more information, please contact: [phone] * Full Code (Latest Code Status on File) Date Activated Date Inactivated Comments 01/28/2022 8:14 AM 01/28/2022 2:23 PM * Full Code Date Activated Date Inactivated Comments 10/21/2021 4:58 AM 10/23/2021 6:01 PM * Full Code Date Activated Date Inactivated Comments 10/20/2021 9:03 AM 10/21/2021 4:58 AM Full CPR in ca se of cardiopulmonary arrest * Full Code Date Activated Date Inactivated Comments 12/30/2017 12:38 PM 12/30/2017 4:22 PM * Full Code Date Activated Date Inactivated Comments 12/28/2017 8:05 PM 12/30/2017 12:38 PM Care Teams Account Maintenance Representative Relationship Specialty Start Date End Date No, Physician PCP - General 08/29/17
--- OUTSIDE RECORDS SUMMARY | 2024-10-31 13:41 | XMS_ITS | Clinical Summary ---
Author Organization [facility] Address [address] [place] [address] Care Team Providers Care Digital Marketing Analyst Name Role Phone No, Physician Primary Care Provider [phone] Allergies No known active allergies Medications venlafaxine [...] # Disposition: Follow up task sent to [facility] scheduling pool. Desires discharge home [...] Nexplanon, IUDs - Considering tubal ligation [x] Gear Shaper: CINDY Trevino [x] Car seat Discussed [x] PP Depression [...] 10/23/2021(Deferred: Patient Refused),06/13/2003,01/13/1998 OPV 12/25/1997,03/07/1996,1995 Tdap 02/23/2020 Surgical History Surgery Date Site/Laterality Comments TUBAL LIGATION 09/19/2021 - 09/18/2022 COLONOSCOPY Medical History Medical History Date Comments UTI (urinary tract infection) Ulcerative colitis (HCC) Family History Medical History Relation Name Comments Arthritis Other 1 Family H/O Arthritis; Cancer Other 1 Family H/O Cancer; Diabetes Other 1 Family H/O Diabetes mellit us; Heart attack Other 1 Family H/O Myocardial infa rction; Before age 60 Hypertension Other 1 Family H/O Hypertension; Stroke Other 1 Family H/O Stroke; Before age 60 Anesthesia problems Neg Hx Colon cancer Neg Hx Esophageal cancer Neg Hx Liver cancer Neg Hx Relation Name Status Comments Father Alive Mother Alive Other 1 Family H/O Alive Other 2 Family H/O Alive Other 3 Family H/O Alive Other 4 Family H/O Alive Other 5 Family H/O Alive Other 6 Family H/O Alive Social History Tobacco Use Types Packs/Day Years [...] often do you attend chur ch or zoroastrian services? Never 10/22/2021 Do you belong to any clubs o r organizations such as methodist groups, unions, fraternal or athletic groups, or [...] and heating? Not hard at all 10/22/2021 [facility] - Occupational Stress Questionnaire Answer Date Recorded [...] place to sleep or slept in a prison (including now)? No 10/22/2021 Mize Depression Scale Answer Date Recorded Mize Depression Scale Total 18 12/01/2021 The thought of harming myself has occurred to me . Never 12/01/2021 Comments No Sex and Gender Information Value Date Recorded Sex Assigned at Not on file Legal Sex Female 10:29 AM SMOOTH PLATER Gender Identity Not on file Sexual Orientation Not on file Obstetrics History Para Term AB IAB SAB Ectopic Multiple Livin g Live Births 4 2 2 2 2 0 2 2 Date Outcome GA Total Labor Labor/2nd/3rd Weight Sex Type Anes PTL Rica A1 A5 Name Clin 013 Term 39w 5d F Vag-S pont Livin g Complications:None 2017 IAB TAB 2019 IAB TAB 022 Term 39w 3d 0h 07m 0h 07m 4.125 kg (9 lb 1.5 oz) M Vag-S pont Epidur al N Livin g 6 8 SAJI RAE Y Chao Wen MD Complications:None Delivery Location:[facility] amp[facility] ([facility]LD) Last Filed Vital Signs Vital Sign Reading [...] 01/28/2022 8:20 AM CDT Plan of Treatment Health Maintenance Due Date Last Done Comments Varicella Vaccines (1 of 2 - 13+ 2-dose series) 2008 Regular Well Visit/Exam 18-64 2013 Cervical Cancer Screening 04/21/2022 04/21/2021 Depression Screening 12/01/2022 12/01/2021 Influenza Vaccine (#1) 2024 DTaP/Tdap/Td Vaccine (7 - Td or Tdap) 02/22/2030 02/23/2020, 06/13/2003, 07/11/1998, Additional history exists Hepatitis B Screening Completed 12/25/1997 , 03/07/1996, 1995 Hepatitis C Screening Completed 04/21/2021 HPV Vaccines Aged Out No longer eligi ble based on patient's age to complete this topic Pneumococcal vaccine <65 Aged Out No longer eligible based on patient's age to complete this topic Procedures Procedure Name Priority Date/Time Associated Diagnosis [...] Edited Result - Final GRACIELA RAMIRES [facility] Department of Laboratories [place], [place] [id number] * Pap with reflex to High Risk HPV (04/21/2021 1:55 PM CDT) Pap test 04/21/2021 1:55 PM CDT 04/21/2021 3:17 PM CDT Narrative 04/30/2021 8:39 AM CDT EPIC results best viewed via link to PDF [facility] [place] [address] Note to Patients: This report may contain [...] details. CYTOPATHOLOGY REPORT FINAL Patient Name: ZOË RAE Gender: F : 1995 (Age: 26) Address: [address] [place] [address] Hospital #: [id number] Service: Gynecology Location: [facility] Patient Type: [facility] Ancillary Taken: 04/21/2021 Received: 04/21/2021 Accessioned: [...] determined by the Surgical Pathology Department at [facility] as part of an ongoing corporate quality engineer program and in compliance with federally mandated [...] determined by the Surgical Pathology Department of [facility]. It has not been cleared or approved by the U. S. Food and Drug Administration. Charlotte Fernandez NP LAB CYTOLOGY ORDERABLE S Final Result from Last 3 Months or Most Recently Relevant to Health Maintenance [place] [address] [facility] MEDICAID [facility] [place] [address] [facility] Advance Directives For more information, please contact: [phone] * Full Code (Latest Code Status on [...] 8:05 PM 12/30/2017 12:38 PM Care Teams Digital Marketing Analyst Relationship Specialty Start Date End Date No, Physician PCP - General 08/29/17
--- OUTSIDE RECORDS SUMMARY | 2024-10-31 13:41 | XMS_ITS | Patient Health Summary ---
Author Organization [facility] Address [address] [place] [address] Care Team Providers Care Meter Installer Name Role Phone Hussain Henning MD Primary Care Provider [phone] [facility],non-owned Affiliates and Associated Physician Practices is amultiple site organization consisting of ambulatory clinics and hospital sitesin [place], [place], [place] and [place]. This disclosure is being madepursuant to the Care Everywhere program and may not contain all information available regarding this patient. Last updated 18.[facility] Allergies No known active allergies Medications * Be aware that medications may not be up to date on this document. Alwaysverify current medications with the patient. * hyoscyamine (LEVSIN) 0.125 MG tablet(Started 11/17/2012) Take 1 Tab by mouth every 4 hours as needed for Spasms. 5 refills left Active Problems Problem Noted Date Diagnosed Date Abdominal pain, generalized 11/17/2012 Diarrhea 11/17/2012 Social History Tobacco Use Types Packs/Day Years Used Date Smoking Tobacco: Never Alcohol Use Standard Drinks/Week Comments Not Asked 0 (1 standard drink = 0.6 oz pur e alcohol) Sex and Gender Information Value Date Recorded Sex Assigned at Not on file Gender Identity Not on file Sexual Orientation Not on file Last Filed Vital Signs Vital Sign Reading Time Taken Comments Blood Pressure 100/66 11/17/2012 10:09 AM DBA Pulse - - Temperature - - Respiratory Rate - - Oxygen Saturation - - Inhaled Oxygen Concentration - - Weight 76.1 kg (167 lb 11.2 oz) 013 10:09 AM DBA Height 162.3 cm (5' 3.9 ) 11/17/2012 10 :09 AM DBA Body Mass Index 28.88 11/17/2012 10:09 AM DBA Procedures * RBC MORPHOLOGY(Performed 11/17/2012) Performed for Diarrhea * TISSUE TRANSGLUTAMINASE AB IGA(Performed 11/17/2012) Performed for Diarrhea * LIPASE BLOOD(Performed 11/17/2012) Performed for Diarrhea * IGA BLOOD(Performed 11/17/2012) Performed for Diarrhea * C-REACTIVE PROTEIN(Performed 11/17/2012) Performed for Diarrhea * COMPREHENSIVE METABOLIC PANEL(Performed 11/17/2012) Performed for Diarrhea * CBC W AUTO DIFFERENTIAL(Performed 11/17/2012) Performed for Diarrhea * AMYLASE BLOOD(Performed 11/17/2012) Performed for Diarrhea Results * TISSUE TRANSGLUTAMINASE AB IGA (11/17/2012 10:50 AM DBA) Tissue Transglutaminase (tTG) Ab, IgA 6 0 - 19 Units 11/18/2012 4:47 PM DBA [employer] Comment: INTERPRETIVE INFORMATION: Tissue Transglutaminase (tTG) Antibody, IgA 19 Units or less: Negative 20-30 Units: Weak Positive 31 Units or greater: Moderate to Strong Positive Presence of the tissue transglutaminase (tTG) IgA antibody is associated with gluten-sensitive enteropathies such as celiac disease and dermatitis herpetiformis. tTG IgA antibody concentrations greater than or equal to 100 Units usually correlate with results of duodenal biopsies consistent with a diagnosis of celiac disease. For antibody concentrations greater than 20 Units but less than 100 Units, additional testing for endomysial (EMELI) IgA concentrations may improve the positive predictive value for disease. Blood specimen (specimen) BLOOD SPECIMEN / Unknown 11/17/2012 10:50 AM DBA 11/17/2012 11:20 AM DBA Micaela Maguire FILLER SHREDDING MACH[employer] [facility] - SEROLOGY OR DERABLES [facility] [employer] [address] [place] [address] * C-REACTIVE PROTEIN (11/17/2012 10:50 AM DBA) C-Reactive Protein <0.20 <=0.50 mg/dL 11/17/2012 11:51 AM [facility] Blood specimen (specimen) BLOOD SPECIMEN / Unknown 11/17/2012 10:50 AM DBA 11/17/2012 11:20 AM DBA Micaela Musa Ting [facility] - CHEMISTRY O RDERABLES Performing Organization Address [facility] Co de Phone Number [facility] [address] [place] [address] * RBC MORPHOLOGY (11/17/2012 10:50 AM [facility]) Pathologist [facility] Hypochromia 1+ 11/17/2012 11:45 AM [facility] Microcytosis 1+ 11/17/2012 11:45 AM [facility] Ovalocytes Few 11/17/2012 11:45 AM [facility] Blood specimen (specimen) BLOOD SPECIMEN / Unknown 11/17/2012 10:50 AM [facility] 11/17/2012 11:20 AM DBA Micaela Maguire [facility] - HEMATOLOGY ORDERABLES Performing Organization Address [facility] Phone Number [facility] [address] [place] [phone] * (ABNORMAL) CBC W AUTO DIFFERENTIAL (11/17/2012 10:50 AM [facility]) Pathologist [facility] WBC 4.1(L) 4.5 - 11.0 x10^9/L 11/17/2012 11:32 AM [facility] RBC 4.23 4.10 - 5.10 x10^12/L 11/17/2012 11:32 AM [facility] Hemoglobin 8.1(L) 12.0 - 16.0 g/dL 11/17/2012 11:32 AM [facility] Hematocrit 27.7(L) 36.0 - 47.0 % 11/17/2012 11:32 AM [facility] MCV 65.5(L) 78.0 - 98.0 fl 11/17/2012 11:32 AM [facility] MCH 19.1(L) 25.0 - 35.0 pg 11/17/2012 11:32 AM [facility] MCHC 29.2(L) 31.0 - 37.0 gm/dL 11/17/2012 11:32 AM [facility] RDW-CV 17.9(H) 11.5 - 14.0 % 11/17/2012 11:32 AM [facility] MPV 10.1(H) 6.0 - 9.5 fl 11/17/2012 11:32 AM [facility] Neutrophils % 46 31 - 78 % 11/17/2012 11:32 AM [facility] Lymphocytes % 40 13 - 54 % 11/17/2012 11:32 AM [facility] Monocytes % 9 4 - 13 % 11/17/2012 11:32 AM [facility] Eosinophils % 4 0 - 8 % 11/17/2012 11:32 AM [facility] Basophils % 1 % 11/17/2012 11:32 AM [facility] Immature Granulocytes 0.2 0 - 1 % 11/17/2012 11:32 AM [facility] Neutrophil Absolute 1.88 x10^9/L 11/17/2012 11:32 AM [facility] Lymphocytes Absolute 1.63 x10^9/L 11/17/2012 11:32 AM [facility] Monocytes Absolute 0.36 x10^9/L 11/17/2012 11:32 AM [facility] Eosinophils Absolute 0.16 x10^9/L 11/17/2012 11:32 AM [facility] Basophils Absolute 0.02 x10^9/L 11/17/2012 11:32 AM [facility] Immature Granulocytes Absolute 0.01 0.00 - 0.06 x10^9/L 11/17/2012 11:32 AM [facility] Hematology Reflex Status RBC Morphology to follow (none) 11/17/2012 11:32 AM [facility] Platelet Count 536(H) 100 - 400 x10^9/L 11/17/2012 11:32 AM [facility] Blood specimen (specimen) BLOOD SPECIMEN / Unknown 11/17/2012 10:50 AM DBA 11/17/2012 11:20 AM [facility] Micaela Maguire [employer]ACH[employer] - HEMATOLOGY ORDERABLES [facility] [address] [facility] [place] [address] * (ABNORMAL) COMPREHENSIVE METABOLIC PANEL (11/17/2012 10:50 AM [facility]) [facility] Glucose 78 70 - 105 mg/dL 11/17/2012 11:54 AM [facility] Sodium 140 136 - 145 mmol/L 11/17/2012 11:54 AM [facility] Potassium 3.7 3.5 - 5.1 mmol/L 11/17/2012 11:54 AM [facility] Chloride 105 98 - 107 mmol/L 11/17/2012 11:54 AM [facility] CO2 26 20 - 28 mmol/L 11/17/2012 11:54 AM [facility] Calcium 9.13 9.08 - 10.48 mg/dL 11/17/2012 11:54 AM [facility] Anion Gap 9 5 - 20 mmol/L 11/17/2012 11:54 AM [facility] BUN 9.3 5.3 - 18.7 mg/dL 11/17/2012 11:54 AM [facility] Creatinine 0.65 0.61 - 1.07 mg/dL 11/17/2012 11:54 AM [facility] eGFR by MDRD >60 ml/min/1.7 3m2 11/17/2012 11:54 AM [facility] Comment:eGFR calculations ar e not performed for children under 18 years old. eGFR by MDRD >60 ml/min/1.7 3m2 11/17/2012 11:54 AM [facility] Comment:eGFR calculations ar e not performed for children under 18 years old. Alkaline Phosphatase 57(L) 100 - 390 U/L 11/17/2012 11:54 AM [facility] ALT <6(L) 8 - 65 U/L 11/17/2012 11:54 AM [facility] AST 16 3 - 35 U/L 11/17/2012 11:54 AM [facility] Protein Total 8.2 6.3 - 8.2 gm/dL 11/17/2012 11:54 AM [facility] Albumin 4.0 3.3 - 4.9 gm/dL 11/17/2012 11:54 AM [facility] Bilirubin Total 0.3 0.3 - 1.2 mg/dL 11/17/2012 11:54 AM DBA [facility] Blood specimen (specimen) BLOOD SPECIMEN / Unknown 11/17/2012 10:50 AM DBA 11/17/2012 11:20 AM DBA Micaela Martinezinocencia [facility] - CHEMISTRY O RDERABLES Performing Organization Address [facility] de Phone Number [facility] [address] [place] [phone] * LIPASE BLOOD (11/17/2012 10:50 AM DBA) Lipase 40 10 - 220 U/L 11/17/2012 11:51 AM DBA [facility] Blood specimen (specimen) BLOOD SPECIMEN / Unknown 11/17/2012 10:50 AM DBA 11/17/2012 11:20 AM DBA Micaela Martinezinocencia [facility] - CHEMISTRY O RDERABLES Performing Organization Address [facility] de Phone Number [facility] [address] [place] [address] * (ABNORMAL) AMYLASE BLOOD (11/17/2012 10:50 AM DBA) Amylase 102(H) 5 - 65 U/L 11/17/2012 11:51 AM DBA [facility] Blood specimen (specimen) BLOOD SPECIMEN / Unknown 11/17/2012 10:50 AM DBA 11/17/2012 11:20 AM DBA Micaela Martinezinocencia [facility] - CHEMISTRY O RDERABLES Performing Organization Address [facility] de Phone Number [facility] [address] [place] [phone] * IGA BLOOD (11/17/2012 10:50 AM DBA) IgA 277 65 - 421 mg/dL 11/17/2012 11:52 AM DBA [facility] Blood specimen (specimen) BLOOD SPECIMEN / Unknown 11/17/2012 10:50 AM DBA 11/17/2012 11:20 AM DBA Micaela Maguire [employer]ACH[employer] - CHEMISTRY O RDERABLES [facility] [address] [place] [place] [address] Care Teams Meter Installer Relationship Specialty Start Date End Date Hussain Henning MD [address] [place] [phone] PCP - General 12/02/20
--- OUTSIDE RECORDS SUMMARY | 2024-10-31 13:41 | XMS_ITS | Clinical Summary ---
Author Organization [facility] Address [address] [place] [address] Phone Care Team Providers Care Staff Radiation Therapist Name Role Phone Maximiliano Browning MD Primary Care Provider [phone] Allergies No known active allergies Medications Vit-Fe Fumarate-FA ( VITAMIN PO) Take by mouth. Active Social History Tobacco Use Types Packs/Day Years Used Date Smoking Tobacco: Never Smokeless Tobacco: Never Tobacco Cessation:Counseling Given: Not Answered Alcohol Use Standard Drinks/Week Comments Never 0 (1 standard drink = 0.6 oz pur e alcohol) Comments No Sex and Gender Information Value Date Recorded Sex Assigned at Not on file Legal Sex Female 11:56 PM CDT Gender Identity Not on file Sexual Orientation Not on file Last Filed Vital Signs Vital Sign Reading Time Taken Comments Blood Pressure 107/65 04/18/2023 11:16 AM CDT Pulse 63 04/18/2023 11:16 AM CDT Temperature 36.4 C (97.5 F) 04/18/2023 8:10 AM CDT Respiratory Rate 14 04/18/2023 8:10 AM CDT Oxygen Saturation 100% 04/18/2023 11:16 AM CDT Inhaled Oxygen Concentration - - Weight 59.7 kg (131 lb 9.8 oz) 04/18/2023 8:10 A M CDT Height 162.6 cm (5' 4 ) 04/18/2023 8:10 AM CDT Body Mass Index 22.59 04/18/2023 8:10 AM CDT Plan of Treatment Health Maintenance Due Date Last Done Comments Hepatitis C Virus (HCV) Screening 1995 Pap Smear 2016 Influenza Immunization (#1) 2024 SARS-COV-2 Immunization (2023- season) 2024 Respiratory Syncytial Virus (RSV) Immunization (Adult) (1 - 1-dose 75+ series) 2070 Hepatitis B Immunization Completed 998, 03/07/1996, 1995 DTaP/Tdap/Td Immunization Discontinued 2019, 06/13/2003, 07/11/1998, Additional history exists TdaP Immunization Completed 02/23/2020 Meningococcal Immunization (ACWY) Aged Out No longer eligible based on patient's age to complete this topic Pneumococcal Immunization Combined Aged Out No longer eligible based on patient's age to complete this topic Rotavirus Immunization Aged Out No lo nger eligible based on patient's age to complete this topic Insurance MEDICAID [employer] Care Teams Staff Radiation Therapist Relationship Specialty Start Date End Date Maximiliano Browning MD [address] [place] [address] PCP - General Internal Medicine 11/18/20
--- OUTSIDE RECORDS SUMMARY | 2024-10-31 13:41 | XMS_ITS | Clinical Summary ---
Author Organization [facility] Address [address] [place] [address] Care Team Providers Care Statistical Developer Name Role Phone Hussain Henning MD Primary Care Provider [phone] Source Comments [facility],non-owned Affiliates and Associated Physician Practices is amultiple site organization consisting of ambulatory clinics and hospital sitesin [place], [place], [place] and [place]. This disclosure is being madepursuant to the Care Everywhere program and may not contain all information available regarding this patient. Last updated 18.[facility] Allergies No known active allergies Medications * Be aware that medications may not be up to date on this document. Alwaysverify current medications with the patient. Medication Sig Dispensed Refills Start Date End Date Status hyoscyamine (LEVSIN) 0.125 MG tablet Take 1 Tab by mouth every 4 hours as needed for Spasms. 60 Tab 5 11/17/2012 Active Active Problems Problem Noted Date Diagnosed [...] Comments Blood Pressure 100/66 11/17/2012 10:09 AM SE[facility] Pulse - - Temperature - - Respiratory Rate - - Oxygen Saturation - - Inhaled Oxygen Concentration - - Weight 76.1 kg (167 lb 11.2 oz) 013 10:09 AM SE[facility] Height 162.3 cm (5' 3.9 ) 11/17/2012 10 :09 AM SE[facility] Body Mass Index 28.88 11/17/2012 10:09 AM [facility] Plan of Treatment Health Maintenance Due Date Last Done Comments PAP SMEAR 1995 HIV SCREENING 2010 HEPATITIS C SCREENING 03/08/2013 DTAP/TDAP/TD VACCINES (1 - Tdap) 2014 HEPATITIS B VACCINE (1 of 3 - 19+ 3-dose series) 2014 COVID-19 VACCINE (1 - 2023-2 5 season) 2024 INFLUENZA VACCINE (#1) 2024 DEPRESSION SCREENING 09/19/2024 ZOSTER VACCINE (1 of 2) 2045 HIB VACCINE Aged Out No longer eligi ble based on patient's age to complete this topic HPV VACCINE Aged Out No longer eligi ble based on patient's age to complete this topic MENINGOCOCCAL (Group B) VACCINE Aged Out No longer eligible based on patient's age to complete this topic MENINGOCOCCAL VACCINE Aged Out No maría tracie eligible based on patient's age to complete this topic PNEUMOCOCCAL VACCINE Aged Out No long er eligible based on patient's age to complete this topic Care Teams Statistical Developer Relationship Specialty Start Date End Date Hussain Henning MD [address] [place] [phone] PCP - General 12/02/20
--- OUTSIDE RECORDS SUMMARY | 2024-10-31 13:41 | XMS_ITS | Referral Summary ---
Author Organization [facility] Address [address] [place] [address] Care Team Providers Care Concrete Block Layer Name Role Phone Hussain Henning MD Primary Care Provider [phone] Source Comments [facility],non-owned Affiliates and Associated Physician Practices is amultiple site organization consisting of ambulatory clinics and hospital sitesin [place], [place], [place] and [place]. This disclosure is being madepursuant to the Care Everywhere program and may not contain all information available regarding this patient. Last updated 18.[facility] Allergies No known active allergies Medications * [...] Comments Blood Pressure 100/66 11/17/2012 10:09 AM THERAPEUTIC PROGRAM WORKER Pulse - - Temperature - - Respiratory Rate - - Oxygen Saturation - - Inhaled Oxygen Concentration - - Weight 76.1 kg (167 lb 11.2 oz) 013 10:09 AM THERAPEUTIC PROGRAM WORKER Height 162.3 cm (5' 3.9 ) 11/17/2012 10 :09 AM THERAPEUTIC PROGRAM WORKER Body Mass Index 28.88 11/17/2012 10:09 AM THERAPEUTIC PROGRAM WORKER Plan of Treatment Not on file Care Teams Concrete Block Layer Relationship Specialty Start Date End Date Hussain Henning MD [address] [place] [phone] PCP - General 12/02/20
[2024-10-31 13:51] VITALS: BP 108/65; PULSE 76; RESP 16; TEMP 37.2; O2SAT 100
--- NOTE | 2024-10-31 13:53 | ED.URI ---
HPI - URI/Sore Throat General Chief Complaint: Upper Respiratory Infection Stated Complaint: Sore Throat/Ear Pain/Cough Source: patient, RN notes reviewed and old records reviewed Mode of arrival: ambulatory Limitations: no limitations History of Present Illness HPI Narrative: 29 year old female who presents to [facility] with complaints of sore throat, headache, ear pain,body aches, cough and congestion with fevers noted since Tuesday. Patient reports that her cough is loose and she has been expectorating some yellowish tinged mucous, Patient reports that she has had fevers highest noted 101F. Patient reports that she has been taking Tylenol DayQuil NyQuil and also Sudafed for her symptoms.Patient reports no shortness of breath. MD elicited complaint: fever, cough, sore throat and other (ear pain) Pertinent past history: pneumonia Onset (ago): day(s) (3) Severity: moderate Able to tolerate fluids by mouth: Yes Treatments prior to arrival: acetaminophen and other (NyQul and DayQuil, Tylenol sudafedi) Related Data Allergies Allergy/AdvReac Type Severity Reaction Status Date / Time No Known Allergies Allergy Unknown Verified 10/31/24 13:53 Review of Systems Review of Systems: CONSTITUTIONAL: reports malaise, chills, sweats, or fever. EYES: Denies visual changes, redness, or discharge. ENT: Reports rhinorrhea, congestion, sinus pain, otalgia and sore throat. CARDIOVASCULAR: Denies chest pain, palpitations, or edema. RESPIRATORY: Reports cough.? Denies dyspnea. GASTROINTESTINAL: Denies abdominal pain, nausea, vomiting, diarrhea SKIN: Denies rash or itching. MUSCULOSKELETAL: reports myalgia. NEUROLOGIC: Reports headache. All systems reviewed & are unremarkable except as noted in HPI and below [facility] Past Medical History Medical History (Updated 11/02/24 @ 12:21 by Domi Faust NP) Ear infection Bronchial pneumonia UTI (urinary tract infection) Anxiety No pertinent past medical history Surgical History Surgical History History of tubal ligation Social History Social History Smoking status: Never smoker Alcohol intake: current Alcohol use details: social Substance use type: does not use Living arrangements: with family Gender identity (if verbalized by the patient): Female Comments At time of signature, agree with nursing past medical, surgical, social and family history. There is no relevant family history pertinent to the presenting complaint Exam Narrative: GENERAL: Ill-appearing, well-nourished, and in no acute distress. HEAD: Normocephalic EYES: PERRLA, conjunctivae clear ENT: Nares clear, turbinates edematous and erythematous, clear discharge, sinus pressure headache. Mucous membranes moist. TM pearly mcarthur with dull light reflex bilaterally; no tragal tenderness. Oropharynx erythematous without lesions. Tonsils red not enlarged and without exudate, no drooling, no hoarseness, no trismus, uvula midline.post nasal drainage noted. NECK: Supple. No lymphadenopathy CHEST: Clear to auscultation, breath sounds equal. No wheezing, rhonchi, rales, or stridor. No respiratory distress, speaks in full sentences.cough noted loose yellowish tinged mucous,. SAO2 100% on room air HEART: Regular rate and rhythm. No murmur heard. SKIN: Warm, dry, no rash. NEURO: Alert and oriented x3. PSYCH: Normal mood and affect Course Course Emergency Course: Patient is aware of diagnosis, understands and agrees to treatment plan.? Anticipatory guidance given.? Patient agrees to follow-up as directed and is aware of reasons to seek care at the emergency department. Portions of this record may have been created with voice recognition software Level of Care: Express Care Visit Vital Signs Vital signs: Vital Signs Temperature 37.2 C 10/31/24 13:51 Pulse Rate 76 10/31/24 13:51 Respiratory Rate 16 10/31/24 13:51 Blood Pressure 108/65 10/31/24 13:51 Pulse Oximetry 100 10/31/24 13:51 Oxygen Delivery Room Air 10/31/24 13:51 Temperature 37.2 C 10/31/24 13:51 Pulse Rate 76 10/31/24 13:51 Respiratory Rate 16 10/31/24 13:51 Blood Pressure 108/65 10/31/24 13:51 Pulse Oximetry 100 10/31/24 13:51 Oxygen Delivery Room Air 10/31/24 13:51 Reviewed MDM - URI/Sore Throat MDM Narrative Medical decision making narrative: Differential diagnosis considered: Echeverria virus, strep pharyngitis, allergic rhinitis, upper respiratory tract infection, sinusitis, rhinosinusitis, nasopharyngitis. viral pharyngitis, otitis media, otitis externa, pneumonia, bronchitis, viral cough syndrome, viral syndrome, and influenza.? Exam findings show no acute concerns or changes; patient is non-toxic appearing and is in no distress.? Patient is appropriate for outpatient treatment and follow-up. Differential Diagnosis Differential diagnosis: Likely upper respiratory infection, otitis media, sinusitis, viral infection, bronchitis, influenza, pharyngitis and other (strep pharyngitis, covid, cough and congestion) Medical Records Attestation: I reviewed the patient's medical records. Lab Data Attestation: I reviewed the patient's lab results. Lab results narrative: Influenza A negative, Influenza B negative, Covid antigen negative, strep screen negative, culture sent Labs: Lab Results 10/31/24 10/31/24 Range/Units 14:08 14:09 POC Influenza A Ag Negative (Negative) POC Influenza B Ag Negative (Negative) POC SARS CoV-2 Ag Negative (Negative) POC Grp A Strep Screen Negative (Negative) reviewed Critical Care Time Critical Care Time Critical Care Time: No Discharge Plan Discharge Clinical Impression: URI with cough and congestion Patient Disposition: Home, Self-Care Condition: Critical Instructions: Antibiotic Form, Upper Respiratory Infection (ED), Acute Cough (ED) Additional Instructions: Increase fluids especially juices and water Mynk-yvs-zmulioq cough and cold medicine of your choice for you Tylenol or Ibuprofen for any fever or pain Claritin, Zyrtec or Melly daily Delsym or Robitussin cough syrup heat to the face 20-30 minutes 4-6 times a day for pain Salt water gargles, throat lozenges or throat sprays as desired Antibiotic as directed--finished the medication Your strep test today was negative. A throat culture will be sent to the laboratory for further testing. Patient Language: Bhutanese Prescriptions: New azithromycin 250 mg tablet See Rx Instructions .ROUTE .COMPLEX Qty: 6 0RF Rx Instructions: For 250 mg dose pack: take 500 mg today (day 1), then 250 mg for 4 days (days 2-5) No Action azithromycin 250 mg tablet See Rx Instructions .ROUTE .COMPLEX Qty: 6 0RF Rx Instructions: For 250 mg dose pack: take 500 mg today (day 1), then 250 mg for 4 days (days 2-5) Follow-up/Referrals: Nallely,MD Maximiliano [Primary Care Provider] - Time of Disposition: 14:25 Quality Juan Coma Scale Eyes: Open Verbal: Oriented and Alert Motor: Follows Commands [place] Coma Total Score: 15
[2024-10-31 14:10] LABS: EDCOVIDSCREEN Negative (Negative); EDINFLUASCREEN Negative (Negative); EDINFLUBSCREEN Negative (Negative)
[2024-10-31 14:10] LABS: EDSTREPNEGPOS1 Negative (Negative)
== END 2024-10-31 14:32 | disposition home or self-care (01) ==
PROVIDERS: Emergency Provider Registered Nurse; PCP Internal Medicine
DX: J06.9 Acute upper respiratory infection, unspecified (principal); Z20.822 Contact with and (suspected) exposure to COVID-19
CPT/HCPCS: 87081; 87426; 87804; 87880; 99213; G0463

== ENCOUNTER 2025-03-23 13:28 | Emergency (ER) | payer OTHER, SELFPAY ==
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
--- OUTSIDE RECORDS SUMMARY | 2025-03-23 13:30 | XMS_ITS | Clinical Summary ---
Author Organization [facility] Address [address] [place] [address] Care Team Providers Care Event Marketing Assistant Name Role Phone No, Physician Primary Care Provider [phone] Allergies No known active allergies Medications venlafaxine [...] 07/06/2021 Overview (12/01/2021): -Denies SI/HI. -12/01/21 EPDS=18 (Never) Question 10. Encouraged to keep appt with [...] # Disposition: Follow up task sent to [facility] scheduling pool. Desires discharge home today. 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 Never 10/22/2021 Do you belong to any clubs o r organizations such as sikh groups, unions, fraternal or athletic groups, or [...] and heating? Not hard at all 10/22/2021 [facility] of Occupat ional [facility] - Occupational Stress Questionnaire Answer Date [...] place to sleep or slept in a usp (including now)? No 10/22/2021 [place] Depression Scale Answer Date Recorded [place] Depression Scale Total 18 12/01/2021 The thought of harming myself has occurred to me . 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 ([facility]) Last Filed Vital Signs Vital [...] 3:42 PM CDT Height 162.6 cm (5' 4) 01/28/2022 8:20 AM CDT Body Mass Index 23 01/28/2022 8:20 AM CDT Plan of Treatment Health Maintenance Due Date Last Done Comments Varicella Vaccines (1 of 2 - 13+ 2-dose series) 2008 Regular Well Visit/Exam 18-64 2013 Cervical Cancer Screening 04/21/2022 04/21/2021 Depression Screening 12/01/2022 12/01/2021 Influenza Vaccine (#1) 2025 DTaP/Tdap/Td Vaccine (7 - Td or Tdap) [...] Edited Result - Final GRACIELA RAMIRES One [facility] Department of Laboratories [place], [place] [id number] * Pap with reflex to High Risk HPV (04/21/2021 1:55 PM CDT) Pap test 04/21/2021 1:55 PM CDT 04/21/2021 3:17 PM CDT Narrative 04/30/2021 8:39 AM CDT EPIC results best viewed via link to PDF [facility] [place] [address] Note to Patients: This report may contain [...] Gender: F : 1995 (Age: 26) Address: [address] [place] [address] Hospital #: [id number] Service: Gynecology Location: [facility] Patient Type: [facility] Ancillary Taken: 04/21/2021 Received: 04/21/2021 Accessioned: [...] determined by the Surgical Pathology Department at [facility] as part of an ongoing water quality specialist program and in compliance with federally mandated [...] determined by the Surgical Pathology Department of [facility]. It has not been cleared or approved by the U. S. Food and Drug Administration. Charlotte Fernandez NP LAB CYTOLOGY ORDERABLE S Final Result from Last 3 Months or Most Recently Relevant to Health Maintenance [place] [place] [address] [facility] MEDICAID [facility] [place] [address] IDPA [facility] Advance Directives For more information, please contact: [phone] * Full Code (Latest Code Status on [...] 8:05 PM 12/30/2017 12:38 PM Care Teams Event Marketing Assistant Relationship Specialty Start Date End Date No, Physician PCP - General 08/29/17
--- OUTSIDE RECORDS SUMMARY | 2025-03-23 13:30 | XMS_ITS | Clinical Summary ---
Author Organization [facility] Address [address] [place] [address] Care Team Providers Care Sport Shoe Spike Assembler Name Role Phone Hussain Henning MD Primary Care Provider [phone] Source Comments [facility],non-owned Affiliates and Associated Physician Practices is amultiple site organization consisting of ambulatory clinics and hospital sitesin [place], [place], [place] and [place]. This disclosure is being madepursuant to the Care Everywhere program and may not contain all information available regarding this patient. Last updated 18.[facility] Allergies No known active allergies Medications * Be aware that medications may not be up to date on this document. Alwaysverify current medications with the patient. 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 Gender Identity Not on file Sexual Orientation Not on file Last Filed Vital Signs Vital Sign Reading Time Taken Comments Blood Pressure 100/66 11/17/2012 10:09 AM STAFF APPRAISER Pulse - - Temperature - - Respiratory Rate - - Oxygen Saturation - - Inhaled Oxygen Concentration - - Weight 76.1 kg (167 lb 11.2 oz) 013 10:09 AM STAFF APPRAISER Height 162.3 cm (5' 3.9) 11/17/2012 10 :09 AM STAFF APPRAISER Body Mass Index 28.88 11/17/2012 10:09 AM STAFF APPRAISER Plan of Treatment Health Maintenance Due Date Last Done Comments HIV SCREENING 2010 HEPATITIS C SCREENING 03/08/2013 DTAP/TDAP/TD VACCINES (1 - Tdap) 2014 HEPATITIS B VACCINE (1 of 3 - 19+ 3-dose series) 2014 COVID-19 VACCINE (1 - 2023-2 5 season) 2024 DEPRESSION SCREENING 09/19/2024 INFLUENZA VACCINE (Season Ended) 2025 ZOSTER VACCINE (1 of 2) 2045 HIB VACCINE Aged Out No longer eligi ble based on patient's age to complete this topic HPV VACCINE Aged Out No longer eligi ble based on patient's age to complete this topic MENINGOCOCCAL (Group B) VACC INE SHARED DECISION-MAKING Aged Out No longer eligibl e based on patient's age to complete this topic MENINGOCOCCAL GROUPS A/C/Y/W VACCINE Aged Out No longer eligible b ased on patient's age to complete this topic PNEUMOCOCCAL VACCINE Aged Out No long er eligible based on patient's age to complete this topic Insurance [facility] MEDICAID - OUT OF STATE MEDICAID - [place] Care Teams Sport Shoe Spike Assembler Relationship Specialty Start Date End Date Hussain Henning MD [address] [place] [id number] PCP - General 12/02/20
--- OUTSIDE RECORDS SUMMARY | 2025-03-23 13:30 | XMS_ITS | Referral Summary ---
Author Organization [facility] Address [address] [place] [address] Care Team Providers Care Rangelands Conservation Laborer Name Role Phone No, Physician Primary Care Provider [phone] Allergies No known active allergies Medications venlafaxine [...] # Disposition: Follow up task sent to [facility] scheduling pool. Desires discharge home today. 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 Never 10/22/2021 Do you belong to any clubs o r organizations such as yarsanism groups, unions, fraternal or athletic groups, or [...] and heating? Not hard at all 10/22/2021 [facility] [place] of Occupat ional Health - Occupational Stress [...] place to sleep or slept in a mcfp (including now)? No 10/22/2021 [place] Depression Scale Answer Date Recorded [place] Depression Scale Total 18 12/01/2021 The thought of harming myself has occurred to me . 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 Gender Identity Not on file Sexual Orientation [...] Edited Result - Final GRACIELA RAMIRES One [facility] Department [place] [address] * Pap with reflex to High Risk HPV (04/21/2021 1:55 PM CDT) Pap test 04/21/2021 1:55 PM CDT 04/21/2021 3:17 PM CDT Narrative 04/30/2021 8:39 AM CDT EPIC results best viewed via link to PDF [facility] [place] [address] Note to Patients: This report may contain [...] Gender: F : 1995 (Age: 26) Address: [address] [place] [address] Hospital #: [id number] Service: Gynecology Location: [facility] Patient Type: [facility] Ancillary Taken: 04/21/2021 Received: 04/21/2021 Accessioned: [...] determined by the Surgical Pathology Department at [facility] as part of an ongoing quality intern program and in compliance with federally mandated [...] determined by the Surgical Pathology Department of [facility]. It has not been cleared or approved by the U. S. Food and Drug Administration. Charoltte Fernandez NP LAB CYTOLOGY ORDERABLE S Final Result from Last 3 Months or Most Recently Relevant to Health Maintenance Insurance [place], [place] [id number] [place] [address] MEDICAID [facility] [place] [address] IDPA [facility] Advance Directives For more information, please contact: [phone] * Full Code (Latest Code Status on [...] 8:05 PM 12/30/2017 12:38 PM Care Teams Rangelands Conservation Laborer Relationship Specialty Start Date End Date No, Physician PCP - General 08/29/17
--- OUTSIDE RECORDS SUMMARY | 2025-03-23 13:30 | XMS_ITS | Clinical Summary ---
Author Organization [facility] Address [address] [place] [address] Phone Care Team Providers Care Runner Out Name Role Phone Maximiliano Browning MD Primary Care Provider Allergies No known active allergies Medications Vit-Fe [...] A M CDT Height 162.6 cm (5' 4) 04/18/2023 8:10 AM CDT Body Mass Index 22.59 04/18/2023 8:10 AM CDT Plan of Treatment Health Maintenance Due Date Last Done Comments Hepatitis C Virus (HCV) Screening 1995 Human Papillomavirus (HPV) Immunization (1 - 3-dose series) 2010 Pap Smear 2016 SARS-COV-2 Immunization ( - 2023- season) 2024 Influenza Immunization (Season Ended) 2025 Respiratory Syncytial Virus (RSV) Immunization (Adult) (1 [...] Insurance MEDICAID [employer] Care Teams Runner Out Relationship Specialty Start Date End Date Maximiliano Browning MD [address] [place] [address] PCP - General Internal Medicine 11/18/20
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
[2025-03-23 13:39] VITALS: BP 113/76; PULSE 88; RESP 16; TEMP 36.7; O2SAT 100
== END 2025-03-23 14:44 | disposition home or self-care (01) ==
PROVIDERS: Emergency Provider Nurse Practitioner Family; PCP Internal Medicine
DX: M25.511 Pain in right shoulder (principal); S16.1XXA Strain of muscle, fascia and tendon at neck level, initial encounter; S29.011A Strain of muscle and tendon of front wall of thorax, initial encounter; V86.99XA Unspecified occupant of other special all-terrain or other off-road motor vehicle injured in nontraffic accident, initial encounter
CPT/HCPCS: 72040; 73030; 99213; G0463